=== PATIENT | female | born 1975 | race Caucasian/White ===

== ENCOUNTER 2025-01-30 20:38 | Emergency (ER) | payer MEDICAID, SELFPAY ==
[2025-01-30] VITALS (11 sets, daily range): BP systolic 123–124; BP diastolic 83–85; PULSE 72–94; TEMP 37.1; O2SAT 96–99; BMI 24.9
--- NOTE | 2025-01-30 21:08 | ED.SYNCOPE1 ---
HPI - Syncope General Chief Complaint: Syncope Stated Complaint: other Time Seen by Provider: 01/30/25 21:02 Source: patient Mode of arrival: ambulance Limitations: no limitations History of Present Illness HPI narrative: history of GLEASON and GERD. syncopal episode usually every 2 months. Workup in progress. Currently wearing a heart monitor. [place] nauseated and went into the bathroom to vomit. Recalls bending over the commode and woke up on the floor. Not sure she struck her head. Does have mild neck pain. No chest pain or extremity weakness. Feels ok now Related Data Home Medications ?Medication ?Instructions ?Recorded ?Confirmed ergocalciferol (vitamin D2) 1,250 1,250 mcg PO .once a week 01/30/25 01/30/25 mcg (50,000 unit) capsule famotidine 20 mg tablet 20 mg PO .nightly 01/30/25 01/30/25 famotidine 40 mg tablet 40 mg PO DAILY 01/30/25 01/30/25 hydroxyzine HCl 10 mg tablet 10 mg PO DAILY PRN itching 01/30/25 01/30/25 loratadine 5 mg/5 mL oral solution 20 ml PO DAILY PRN allergic 01/30/25 01/30/25 symptoms pantoprazole 40 mg tablet,delayed 40 mg PO Q12H 01/30/25 01/30/25 release pyridostigmine bromide 30 mg tablet 30 mg PO TID 01/30/25 01/30/25 Allergies Allergy/AdvReac Type Severity Reaction Status Date / Time gabapentin Allergy Severe Anaphylaxis Verified 01/30/25 20:47 nitrofurantoin (From Allergy Severe Anaphylaxis Verified 01/30/25 20:47 Macrobid) steroids Allergy Severe Anaphylaxis Uncoded 01/30/25 20:47 Review of Systems ROS Status of ROS 10 or more systems reviewed and unremarkable except as noted in history and below PFSH PFSH Social History Little interest or pleasure in doing things: not at all Feeling down, depressed, or hopeless: not at all Exam Constitutional Vital Signs, click to edit/add: Last Vital Signs Temp 98.7 F 01/30/25 20:47 Pulse 75 01/30/25 22:33 Resp 20 01/30/25 22:33 BP 124/83 01/30/25 22:33 Pulse Ox 99 01/30/25 22:33 O2 Del Method Room Air 01/30/25 22:33 Common normals: no apparent distress, average body habitus, oriented x3, no limitations, healthy appearing, alert and well nourished [facility] Common normals: normocephalic and head/scalp atraumatic Eye Common normals: EOMs intact bilaterally and conjunctivae normal Neck & C-Spine Common normals: full ROM (mild right cervical tenderness) Chest Common normals: inspection of chest normal and palpation of chest normal Respiratory Common normals: normal respiratory effort, no retractions, no use of accessory muscles and clear to auscultation bilaterally Cardio Common normals: regular rate, regular rhythm, S1 normal heart sound and S2 normal heart sound GI Common normals: Normal to inspection, nondistended, normoactive bowel sounds present, soft to palpation and non-tender Extremity Common normals: normal to inspection and full ROM Neuro Common normals: oriented x3, CN's II-XII intact bilaterally, moves all extremities and no focal motor deficits Psych Appearance: grossly normal Course Vital Signs Vital signs: Vital Signs Pulse Rate 81 01/30/25 20:45 Respiratory Rate 18 01/30/25 20:45 Pulse Oximetry 97 01/30/25 20:45 Temperature 98.7 F 01/30/25 20:47 Pulse Rate 75 01/30/25 22:33 Respiratory Rate 20 01/30/25 22:33 Blood Pressure 124/83 01/30/25 22:33 Pulse Oximetry 99 01/30/25 22:33 Oxygen Delivery Method Room Air 01/30/25 22:33 MDM - Syncope MDM Narrative Medical decision making narrative: patient with history of GLEASON. States she can pass out maybe once [id number]. Tonight ran into the bathroom to vomit and recall standing over the commode when she woke up on the floor. Does not believe she struck her head but her neck is sore. No weakness or her extremities. brought to the ER by squad. Other than her neck she feels ok. workup neg including d-dimer and troponin. CT brain and C-spine without acute findings. she is discharged in stable condition and advised her syncope is most likely related to her GLEASON. she was hydrated with 1L NS prior to discharge Lab Data Labs: Lab Results 01/30/25 Range/Units 21:20 WBC 4.9 (4.0-11.0) 10^3/uL RBC 4.33 (4.20-5.40) 10^6/uL Hgb 12.2 (12.0-16.0) g/dL Hct 35.9 L (36.0-48.0) % MCV 82.9 (81.0-99.0) fL MCH 28.2 (26.7-34.0) pg MCHC 34.0 (29.9-35.2) g/dL RDW 12.6 (11.0-15.0) % Plt Count 206 (150-450) 10^3/uL MPV 10.7 (9.5-13.5) fL Neut % (Auto) 71.6 (43.0-75.0) % Lymph % (Auto) 19.2 L (20.5-60.0) % [place] % (Auto) 7.6 (1.7-12.0) % Eos % (Auto) 1.2 (0.9-7.0) % Baso % (Auto) 0.2 (0.2-2.0) % Neut # (Auto) 3.5 (1.4-6.5) 10^3/uL Lymph # (Auto) 0.9 L (1.2-3.8) 10^3/uL [place] # (Auto) 0.4 (0.3-0.8) 10^3/uL Eos # (Auto) 0.1 (0.0-0.7) 10^3/uL Baso # (Auto) 0.0 (0.0-0.1) 10^3/uL Abs Immat Gran (auto) 0.01 (0.00-0.03) 10^3/uL Imm/Tot Granulo (auto) 0.2 (0.0-0.5) % D-Dimer 0.57 (<=0.59) mg/L FEU Sodium 145 (136-145) mmol/L Potassium 3.5 (3.5-5.1) mmol/L Chloride 108 H (98-107) mmol/L Carbon Dioxide 29.9 (21.0-32.0) mmol/L Anion Gap 10.6 BUN 11.0 (7.0-18.0) mg/dL Creatinine 0.86 (0.55-1.02) mg/dL Est GFR ( Amer) >60 (>=60 mL/min/1.73m^2) Est GFR (Non-Af Amer) >60 (>=60 mL/min/1.73m^2) BUN/Creatinine Ratio 12.8 Glucose 91 (74-106) mg/dL Calcium 8.4 L (8.5-10.1) mg/dL Troponin I High Sens <4.0 L (4.0-51.3) pg/mL Discharge Plan Discharge Chief Complaint: Syncope Clinical Impression: Syncope due to orthostatic hypotension, Cervical strain Patient Disposition: Home, Self-Care Prescriptions / Home Meds: No Action ergocalciferol (vitamin D2) 1,250 mcg (50,000 unit) capsule 1,250 mcg PO .once a week famotidine 20 mg tablet 20 mg PO .nightly famotidine 40 mg tablet 40 mg PO DAILY hydroxyzine HCl 10 mg tablet 10 mg PO DAILY PRN (Reason: itching) loratadine 5 mg/5 mL solution 20 ml PO DAILY PRN (Reason: allergic symptoms) pantoprazole 40 mg tablet,delayed release (DR/EC) 40 mg PO Q12H pyridostigmine bromide 30 mg tablet 30 mg PO TID Print Language: Estonian Instructions: Cervical Strain (ED), Syncope (ED) Referrals: Physician,Non-Staff, MD [Primary Care Provider] - 1 week
--- NOTE | 2025-01-30 21:11 | XR_ITS ---
The [address] [address] Patient Name: NABOR STOVALL MRN: [id number] date: 1975 Sex: F Assigned Patient Location: ED.MAIN Current Patient Location: ER Accession/Order Number: [id number] Exam Date: 01/30/2025 21:30 Report Date: 01/30/2025 22:14 At the request of: LAKISHA KNIGHT MD Procedure: XR chest 1V PA CHEST: CLINICAL HISTORY: syncope COMPARISON: None The heart is normal in size. The lungs are clear. The pulmonary vasculature is normal. Mediastinum and hilar regions are unremarkable. No pleural effusions are seen. Visualized bones are intact. XR/XR chest 1V IMPRESSION: NEGATIVE CHEST. Impression dictated by: Jeffy Vazquez M.D. 01/30/2025 10:14 PM Dictation Location: [place] [address] Electronically authenticated by: [id number] Y Date: 01/30/2025 22:14
[2025-01-30 21:29] LABS: Hematocrit 35.9 % (36.0-48.0); Hemoglobin 12.2 g/dL (12.0-16.0); Immature Granulocytes Abs Auto 0.01 10^3/uL (0.00-0.03); Immature Granulocytes Pct Auto 0.2 % (0.0-0.5); Lymphocytes Absolute Auto 0.9 10^3/uL (1.2-3.8); Mean Corpuscular HGB Conc 34.0 g/dL (29.9-35.2); Mean Corpuscular Hemoglobin 28.2 pg (26.7-34.0); Mean Corpuscular Volume 82.9 fL (81.0-99.0); Platelet Count 206 10^3/uL (150-450); Red Blood Count 4.33 10^6/uL (4.20-5.40); White Blood Count 4.9 10^3/uL (4.0-11.0)
[2025-01-30 21:44] LABS: Anion Gap 10.6; Blood Urea Nitrogen 11.0 mg/dL (7.0-18.0); Calcium 8.4 mg/dL (8.5-10.1); Carbon Dioxide 29.9 mmol/L (21.0-32.0); Chloride 108 mmol/L (98-107); Estimated GFR (African America >60 (>=60 mL/min/1.73m^2); Estimated GFR (Non-African Ame >60 (>=60 mL/min/1.73m^2); Glucose 91 mg/dL (74-106); Potassium 3.5 mmol/L (3.5-5.1); Sodium 145 mmol/L (136-145)
[2025-01-30] MEDS: 0.9 % SODIUM CHLORIDE 1,000 ML 999 ML IV (21:47)
--- NOTE | 2025-01-30 22:03 | CT_ITS ---
The [address] [address] Patient Name: NABOR STOVALL MRN: [id number] date: 1975 Sex: F Assigned Patient Location: ER Current Patient Location: ER Accession/Order Number: [id number] Exam Date: 01/30/2025 22:17 Report Date: 01/30/2025 22:36 At the request of: LAKISHA KNIGHT MD Procedure: CT head/brain wo con CT BRAIN WITHOUT CONTRAST: CLINICAL HISTORY: fall COMPARISON: None TECHNIQUE: Contiguous axial unenhanced images were obtained through the brain. This CT exam was performed using one or more following dose reduction techniques: Automated exposure control, adjustment of the mA and/or kV according to patient size, or use of iterative reconstruction technique. FINDINGS: There is no evidence of midline shift, intra or extra-axial fluid collection, hemorrhage or CT evidence of acute large vascular distribution stroke Visualized intraorbital contents appear unremarkable. Visualized paranasal sinuses are clear. The surrounding soft tissues are normal. CT/CT head/brain wo con IMPRESSION: NO ACUTE INTRACRANIAL ABNORMALITY. Impression dictated by: Jeffy Vazquez M.D. 01/30/2025 10:36 PM Dictation Location: [place] [address] Electronically authenticated by: [id number] Y Date: 01/30/2025 22:36
--- NOTE | 2025-01-30 22:03 | CT_ITS ---
The [address] [address] Patient Name: NABOR STOVALL MRN: [id number] date: 1975 Sex: F Assigned Patient Location: ER Current Patient Location: ER Accession/Order Number: [id number] Exam Date: 01/30/2025 22:17 Report Date: 01/30/2025 22:44 At the request of: LAKISHA KNIGHT MD Procedure: CT cervical spine wo con CT CERVICAL SPINE WITHOUT CONTRAST WITH 3D RECONSTRUCTIONS: CLINICAL HISTORY: fall COMPARISON: None TECHNIQUE: Spiral axial unenhanced images were obtained through the cervical spine. Sagittal, coronal and 3D volume-rendered reconstructions were also reviewed. This CT exam was performed using one or more following dose reduction techniques: Automated exposure control, adjustment of the mA and/or kV according to patient size, or use of iterative reconstruction technique. FINDINGS: No fracture malalignment. Mild multilevel degenerative change with uncovertebral spurring notably C4-C6. Prevertebral paraspinal soft tissues otherwise unremarkable. CT/CT cervical spine wo con IMPRESSION: NO CERVICAL SPINE FRACTURE Impression dictated by: Jeffy Vazquez M.D. 01/30/2025 10:44 PM Dictation Location: [place] [address] Electronically authenticated by: [id number] Y Date: 01/30/2025 22:44
--- NOTE | 2025-01-30 22:17 | ECG_ITS ---
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
== END 2025-01-31 00:13 | disposition home or self-care (01) ==
PROVIDERS: Emergency Provider Internal Medicine
DX: S16.1XXA Strain of muscle, fascia and tendon at neck level, initial encounter (principal); I95.1 Orthostatic hypotension; W18.39XA Other fall on same level, initial encounter; Y93.89 Activity, other specified; Y92.002 Bathroom of unspecified non-institutional (private) residence as the place of occurrence of the external cause; K21.9 Gastro-esophageal reflux disease without esophagitis; G90.A Postural orthostatic tachycardia syndrome [POTS]
CPT/HCPCS: 36415; 70450; 71045; 72125; 76376; 80048; 84484; 85025; 85378; 93005; 99285

== ENCOUNTER 2025-05-09 15:15 | Emergency (ER) | payer MEDICAID, SELFPAY ==
--- OUTSIDE RECORDS SUMMARY | 2024-08-01 03:30 | XMS_ITS ---
Author Organization The 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 and Psoriasis vulgaris L40.0 Assessments Encounter Date Diagnosis (ICD Code) Assessment Notes Treatment Notes Treatment Clinical Notes Section Notes 08/01/2024 Other psoriatic arthropathy (ICD -10 - L40.59) 08/01/2024Psoriasis vulgaris (ICD-10 - L40.0) Plan Of Treatment No Information Progress Notes * Soumya STOVALLDOB: [birth year] (49 yo F)Acc No.[id number]:08/01/2024 UNLOCKED PROGRESS NOTE Progress Note Patient: Beth REEVESSOFISupaSoumya :?Ioana Chapin APRNDOB:1975???Age:49 Y ???Sex:FemaleDate:08/01/2024Phone:[phone]:[id number], [place]Qvq:Larry Cee In:08:15 AM ESTCheck Out: 08:53 AM EST Subjective: * Chief Complaints: * 1 . 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 * Medical History: Objective: * Vitals: Assessment: * Assessment: 1.?Other psoriatic arthropathy - L40.59???2.?Psoriasis vulgaris - L40.0 ?? Plan: * Treatment: * * Electronic signature of Ioana Chapin NP on 05/09/2025 at 04:20 PM ESTSign off status: PendingVisit Status:?CHK (Check Out) * Provider: Brianna Chapin APRN Date: 0 08/01/2024 Generated for Printing/Faxing/eTransmitting on:?05/09/2025 04:20 PM EST
--- OUTSIDE RECORDS SUMMARY | 2024-12-09 04:15 | XMS_ITS ---
Author Organization [facility] Address [address] [place], [place] [id number] Care Team Providers Care Utility Engineer Name Role Phone Josh Diandra Primary Care Provider REASON FOR VISIT 3 month f/u raynauds phenomenom Social History Sex Assigned At : Social History Observation Description Sex Assigned At Female Encounters Encounter Location Date Provider Diagnosis [address] [address] 12/09/2024 Diandra Moreno Plan Of Treatment Next Appt Details Provider Name:Diandra Jonesood, 07/21/2025 01:15:00 PM, [address] [place] [address], [phone], Progress Notes * Soumya STOVALLDOB: [birth year] (49 yo F)Acc No.[id number]:12/09/2024 Medical Note Patient: Beth Soumya benites :?Diandra Jonesood MDDOB:1975???Age:49 Y???Sex: FemaleDate:12/09/2024Phone:[phone]:[id number], [place]-[address] Subjective: * Chief Complaints: * 3 month f/u raynauds phenomenom * Electronic signature of Diandra Moreno MD on 05/09/2025 at 04:19 PM ESTSign off status: Pending * Provider: Nitza Moreno MD Date: 0 12/09/2024 Generated for Printing/Faxing/eTransmitting on:?05/09/2025 04:19 PM EST
--- OUTSIDE RECORDS SUMMARY | 2024-12-16 04:30 | XMS_ITS ---
Author Organization [facility] in [place] Address [address] [place] [address] Care Team Providers Care Lead Etl Developer Name Role Phone Josh NAVARRETE, Diandra Primary Care Provider Unavailab ARIADNA Weems Unavailable [phone] REASON FOR VISIT KS-3 month PS follow up Encounters Encounter Location Date Provider Diagnosis [facility] [address] [place] [address] 12/16/2024 ARIADNA HAGEN Plan Of Treatment No Information Progress Notes * Soumya STOVALLDOB: [birth year] (49 yo F)Acc No.[id number]:12/16/2024 UNLOCKED PROGRESS NOTE Established Patient: Soumya WALKER :?ARIADNA HAGEN APRNDOB:1975???Age:49 Y ???Sex:FemaleDate:12/16/2024Phone:[phone]:[id number] [place], [place]Tck:Diandra Moreno MD Subjective: * Chief Complaints: * 1 . KS-3 month PS follow up. * Medical History: Objective: * Vitals: Assessment: Plan: * Treatment: * * Electronic signature of ARIADNA HAGEN NP on 05/09/2025 at 04:20 PM ESTSign off status: PendingVisit Status:?N/S (No-Show) * Provider: Brianna HAGEN APRN Date: 0 12/16/2024 Generated for Printing/Faxing/eTransmitting on:?05/09/2025 04:20 PM EST
--- OUTSIDE RECORDS SUMMARY | 2025-05-06 14:00 | XMS_ITS | Encounter Summary ---
Author Organization [facility] Address [address] [place] [address] Care Team Providers Care Services Rep Name Role Phone William Weston Primary Care Provider [phone] Encounter Details DateTypeDepartmentCare Team (Latest Contact Info)Wotahbdjbwa14/17/2025 2:00 PM ESTOffice Visit [facility] [address] [place] [address] Artemio Post MD [address] [place] [address] POTS (postural orthostatic tachycardia syndrome) (Primary Dx); Mast cell activation Social History Tobacco UseTypesPacks/DayYears UsedDateSmoking Tobacco: NeverSmokeless Tobacco: NeverAlcohol UseStandard Drinks/WeekCommentsNot Currently0 (1 standard drink = 0.6 oz pure alcohol)MS Safety & EnvironmentAnswerDate RecordedFear of Current or Ex-PartnerNot on file10/09/2023Emotionally AbusedNot on file10/09/2023hysically AbusedNot on file10/09/2023Sexually AbusedNot on file10/09/2023hysically or Sexually AbusedNot on file10/09/2023CommentsNoSex and Gender Information ValueDate RecordedSex Assigned at GhkxlPqwhtp29/27/2025 9:30 AM EDTLegal Sex Qoljnf7011/16/2021 11:16 PM EDTGender GlmhwbuxNartul90/27/2025 9:30 AM EDTSexual OrientationChoose not to igiqualq30/27/2025 9:30 AM EDTdocumented as of this encounter Last Filed Vital Signs Vital SignReadingTime TakenCommentsBlood Grzfxvsy067/80107/07/2024 1:49 PM EST Pulse--Temperature--Respiratory Rate--Oxygen Dxwizgzqlx40%05/06/2025 1:49 PM EST Inhaled Oxygen Concentration--Soguam59.9 kg (132 lb)05/06/2025 1:49 PM ESTHeight 154.9 cm (5' 1 )05/06/2025 1:49 PM ESTBody Mass Index24.9405/06/2025 1:49 PM EST documented in this encounter Progress Notes * Artemio Post MD - 05/06/2025 2:00 PM EST Images from the original note were not included. [facility] Reason for Consultation: Postural orthostatic tachycardia syndrome HPI: Soumya Rosenberg is a 49 y.o. year old with past medical history of postural orthostatic tachycardia syndrome.. She says she was well until she contracted COVID in 2019. At that time she began to experience dizziness, palpitations, lightheadedness and fatigue. She was still able to work with some difficulty. She then received a COVID vaccination ([employer]) and had a severe reaction to it breaking out in the rash. She ended up being hospitalized because of this. In July or the first of 2022 she injured her back and so much so that it required surgery which she had in May 10, 2023. Following this surgical procedure she got markedly worse and became bed ridden. When she tries to get up she notices extreme palpitations and her heart racing. Her fatigue markedly worsened and she beganto experience brain fog and heat intolerance. As things progressed she noted blood pooling in her lower extremities when upright as well as in her hands. It progressed to the point where she could not stand for fear becoming extremely tachycardic lightheaded and near syncopal. She began to have a number of GI symptoms including extreme reflux and nausea that was exacerbated with eating. As a consequence she has lost 60 pounds of weight. She was felt to possibly have postural tachycardia syndrome and underwent head upright tilt table testing which was markedly positive. She was tried on a number of beta- blockers however this made her worse. Midodrine made her extremely nauseated. She was tried on Lexapro and this was ineffective as well. She is developing many symptoms that sound suggestive of mast cell activation syndrome. On physical examination her resting heart rate sitting on the exam table is 100 beats a minute and goes to 133 upon standing. After carefully reviewing her history,physical findings and the very detailed evaluation she has had done I believe she suffers from postural orthostatic tachycardia syndrome. Many of these patients will also develop a mast cell activation syndrome which then makes it difficult for them to eat or tolerate many pharmaceuticals. I think I would like to start her first on Gastrocrom 1 ampoule before meals 4 times daily. Then if we can calm down her GI tract I had like to start her on ivabradine 5 mg orally twice daily. I told her to contact us if any problems occurred. I had a long discussion with the patient and her mother regarding the pathophysiology of postural tachycardia syndrome, its probable autoimmune basis and potential therapeutic modalities could be employed. We also went over the necessity for reconditioning but doing so on a very slow and gentle basis. PMH: Medical History[1] PSH: Surgical History[2] SH: Social Drivers of Health Tobacco Use: Low Risk (05/06/2025) Patient History Smoking Tobacco Use: Never Smokeless Tobacco Use: Never Passive Exposure: Not on file Alcohol Use: Not At Risk (11/19/2024) Received from [email or web address]-C Q1: How often do you have a drink containing alcohol?: Never Q2: How many drinks containing alcohol do you have on a typical day when you are drinking?: Patientdoes not drink Q3: How often do you have six or more drinks on one occasion?: Never Financial Resource Strain: Not on file Food Insecurity: No Food Insecurity (03/25/2025) Received from [facility] [employer] Hunger Screening Within the past 12 months we worried whether our food would run out before we got money to buy more.: Never True Within the past 12 months the food we bought just didn't last and we didn't have money to get more.: Never True Transportation Needs: No Transportation Needs (05/11/2024) Received from [facility] PRAP[facility] - Transportation Lack of Transportation (Medical): No Lack of Transportation (Non-Medical): No Physical Activity: Not on file Stress: Not on file Social Connections: Not on file Intimate Partner Violence: Unknown (10/09/2023) MS Safety & Environment Fear of Current or Ex-Partner: Not on file Emotionally Abused: Not on file Physically Abused: Not on file Sexually Abused: Not on file Physically or Sexually Abused: Not on file Depression: Not at risk (04/15/2024) Received from [facility] PHQ-2 Patient Health Questionnaire-2 Score: 0 Housing Stability: Low Risk (05/11/2024) Received from [facility] Housing Stability Vital Sign In the last 12 months, was there a time when you were not able to pay the mortgage or rent on time?: No In the past 12 months, how many times have you moved where you were living?: 1 At any time in the past 12 months, were you homeless or living in a residential (including now)?: No Utilities: Not At Risk (05/11/2024) Received from [facility] Utilities Threatened with loss of utilities: No Health Literacy: Not on file Meds: Medications Ordered Prior to Encounter[3] ROS: Cardio Basic Cardiovascular Symptoms: fatigue, dizziness, lightheadedness, no leg edema, near syncope, no orthopnea, no PND, no claudication, Constitutional Constitutional: no fever, night sweats, no significant weight gain, significant weight loss, exercise intolerance Eyes Eyes: no dry eyes, no irritation, no vision change ENMT Ears: no difficulty hearing, no ear pain Nose: no frequent nosebleeds, Mouth/Throat: no sore throat, no bleeding gums, no snoring, no dry mouth, no mouth ulcers, no oral abnormalities, no teeth problems Respiratory Respiratory: no cough, no wheezing, no coughing up blood, no sleep apnea Musculoskeletal Musculoskeletal: no muscle aches, no muscle weakness, joint pain+, no back pain, no swelling in theextremities Integumentary Skin no rash, no ulcer, no varicosities, no discoloration, no pruritus Neurologic Neurologic: no loss of consciousness, no weakness, no numbness, no seizures, dizziness, headaches, brain fog Psychiatric Psych: no depression, feeling safe in relationship, no alcohol abuse, Hematologic/Lymphatic Hematologic/Lymphatic no swollen glands, no bruising Physical Exam: Constitutional General Appearance: well-nourished, well-developed, appears stated age Level of Distress: comfortable Psychiatric Mental Status: alert, normal affect Orientation: oriented to time, place, and person Insight: good judgement Eyes Lids and Conjunctivae: non-injected, no xanthelasma ENMT Ears: no lesions on external ear Nose: no lesions on external nose Oropharynx: no cyanosis, no pallor Neck Neck: supple, trachea midline Carotid Arteries: bilateral normal upstroke, no bruits Jugular Veins: normal jugular venous pressure Thyroid: not enlarged Lungs Respiratory Effort: unlabored Chest Exam: normal curvature, no thoracic deformity Auscultation: clear, no wheezing, no rales, no rhonchi Cardiovascular Rate And Rhythm: regular Heart Sounds: normal S1, normal s2, no gallop Systolic Murmur: not heard Diastolic Murmur: not heard Extremities: no cyanosis, no edema, no peripheral signs of emboli Peripheral Pulses Radial Pulse: Tachycardic Abdomen Inspection and Palpation: soft, non distended, no bruit, non tender Musculoskeletal Inspection: no joint swelling Neurologic Gait: normal gait, however unable to stand more than a few moments Skin Inspection and Palpation: warm and dry Nails: no clubbing Labs: @LABRESULTS@ EKG: No results found for this or any previous visit (from the past 4464 hours). Echo: No echocardiogram results found for the past 12 months Stress test: Coronary angiogram: @CATH@ Diagnostic Imaging: No images are attached to the encounter. 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 famotidine (Pepcid) 20 mg tablet Take 20 mg by mouth. inulin (Fiber Gummies) 2 gram tablet,chewable Chew. loratadine (Claritin) 5 mg/5 mL syrup Take 20 mg by mouth in the morning. pantoprazole (ProtoNix) 40 mg EC tablet TAKE 1 TABLET BY MOUTH ONCE DAILY IN THE MORNING BEFORE BREAKFAST pyRIDostigmine (Mestinon) 30 mg tablet Take 1 tablet (30 mg) by mouth three times daily. (Patient not taking: Reported on 05/06/2025) 90 tablet 3 No current facility-administered medications on file prior to visit. documented in this encounter Plan of Treatment Not on file documented as of this encounter Visit Diagnoses Diagnosis POTS (postural orthostatic tachycardia syndrome)- Primary Unspecified tachycardia Mast cell activation documented in this encounter Care Teams Team MemberRelationshipSpecialtyStart DateEnd Date William Weston PA PCP - [facility]10/16/23documented as of this encounter
[2025-05-09] VITALS (29 sets, daily range): BP systolic 112–161; BP diastolic 77–97; PULSE 85–113; TEMP 36.8; O2SAT 96–99; BMI 24.9
--- NOTE | 2025-05-09 15:38 | ECG_ITS ---
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 Measurements Intervals [place] Rate: 103 P: 51 LA: 130 QRS: 25 QRSD: 76 T: 14 QT: 328 QTc: 387 Interpretive Statements 1120 Sinus tachycardia 8102 Low QRS voltage in chest leads 0102 ARTIFACT PRESENT 9140 abnormal rhythm ECG Compared to ECG 01/30/2025 20:45:01 Low QRS voltage now present Sinus rhythm no longer present Supraventricular premature complexes no longer present Electronically Signed On 05-09-2025 16:02:22 EST by MARVIN RAMIREZ M.D.
--- NOTE | 2025-05-09 15:38 | XR_ITS ---
[facility] [place] [id number] Patient Name: NABOR STOVALL MRN: [id number] date: 1975 Sex: F Assigned Patient Location: ER Current Patient Location: ED.MAIN Accession/Order Number: [id number] Exam Date: 05/09/2025 15:55 Report Date: 05/09/2025 16:16 At the request of: YOAV WILKERSON MD Procedure: XR chest 1V Single view chest: CLINICAL HISTORY: Hematemesis COMPARISON: 01/30/2025 FINDINGS: The heart is normal in size. The lungs are clear. The pulmonary vasculature is normal. Mediastinum and hilar regions are unremarkable. No pleural effusions are seen. Visualized bones are intact. XR/XR chest 1V IMPRESSION: NO ACUTE PROCESS. Impression dictated by: Nabeel Diaz Jr., D.O. 05/09/2025 4:16 PM Dictation Location: [place] [address] Electronically authenticated by: [id number] Y Date: 05/09/2025 16:16
--- NOTE | 2025-05-09 15:41 | ED.GENADUL1 ---
HPI HPI - General Adult General Chief complaint: Abdominal Pain Stated complaint: Chest Pain Time Seen by Provider: 05/09/25 15:23 Source: patient Mode of arrival: Wheelchair History of Present Illness HPI narrative: 49-year-old female presented to the emergency department for hematemesis. She states it started today. She does not take any blood thinners and has not seen any blood in her stool. 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 She has not had endoscopy since then. Related Data Home Medications ?Medication ?Instructions ?Recorded ?Confirmed famotidine 20 mg tablet 20 mg PO .nightly 01/30/25 05/09/25 famotidine 40 mg tablet 40 mg PO DAILY 01/30/25 05/09/25 hydroxyzine HCl 10 mg tablet 10 mg PO DAILY PRN itching 01/30/25 05/09/25 loratadine 5 mg/5 mL oral solution 20 ml PO Q12H allergic symptoms 01/30/25 05/09/25 pantoprazole 40 mg tablet,delayed 40 mg PO Q12H 01/30/25 05/09/25 release Allergies Allergy/AdvReac Type Severity Reaction Status Date / Time gabapentin Allergy Severe Anaphylaxis Verified 05/09/25 15:28 nitrofurantoin (From Allergy Severe Anaphylaxis Verified 05/09/25 15:28 Macrobid) steroids Allergy Severe Anaphylaxis Uncoded 05/09/25 15:28 Opioid HPI Opioid Management Most Recent Opioid Data: Last Pain Scale 7 Today, 15:31 Review of Systems ROS Narrative A ten point review of systems is negative except as noted above. PFSH PFSH Social History Little interest or pleasure in doing things: not at all Feeling down, depressed, or hopeless: not at all Exam Narrative Exam Narrative: Nurses note and vital signs reviewed General:The patient appears well and in no apparent distress.Patient is resting comfortably on cart. Skin:Warm, dry, no pallor noted.There is no rash noted. Head:Normocephalic, atraumatic Eye: Normal conjunctiva, no drainage Ears, Nose, Mouth, and Throat: oral mucosa is moist. Nares patent. Cardiovascular:Regular Rate and Rhythm Respiratory:Patient is in no distress, no accessory muscle use, lungs are clear to auscultation, no wheezing, rales or rhonchi Back:non-tender GI: Soft and nontender Musculoskeletal: The patient has no evidence of calf tenderness, no pitting edema, symmetrical pulses noted bilaterally Neurological:A&O, normal speech Psychiatric:Cooperative Constitutional Vital Signs, click to edit/add: Last Vital Signs Temp 98.3 F 05/09/25 15:22 Pulse 95 H 05/09/25 17:30 Resp 13 05/09/25 17:30 BP 134/90 05/09/25 17:30 Pulse Ox 98 05/09/25 17:30 O2 Del Method Room Air 05/09/25 15:22 Course Vital Signs Vital signs: Vital Signs Temperature 98.3 F 05/09/25 15:22 Pulse Rate 99 H 05/09/25 15:22 Respiratory Rate 18 05/09/25 15:22 Blood Pressure 161/97 H 05/09/25 15:22 Pulse Oximetry 99 05/09/25 15:22 Oxygen Delivery Method Room Air 05/09/25 15:22 Temperature 98.3 F 05/09/25 15:22 Pulse Rate 95 H 05/09/25 17:30 Respiratory Rate 13 05/09/25 17:30 Blood Pressure 134/90 05/09/25 17:30 Pulse Oximetry 98 05/09/25 17:30 Oxygen Delivery Method Room Air 05/09/25 15:22 Medical Decision Making MDM Narrative Medical decision making narrative: The patient presents with what appears to be an upper GI bleed. A year ago she states she had a precancerous tumor that needed to be removed from her esophagus. She has had no issues since then until now. She was given IV Protonix and placed on a Protonix drip. I have spoken to framer who accepts the patient at [facility]. The patient is stable and agreeable for transfer. Differential Diagnosis Differential Diagnosis: Upper GI bleed, hematemesis, esophageal varices, esophageal mass Lab Data Lab results reviewed: Yes I reviewed the patient's lab results Labs: Lab Results 05/09/25 Range/Units 15:45 WBC 4.6 (4.0-11.0) 10^3/uL RBC 4.81 (4.20-5.40) 10^6/uL Hgb 13.5 (12.0-16.0) g/dL Hct 40.6 (36.0-48.0) % MCV 84.4 (81.0-99.0) fL MCH 28.1 (26.7-34.0) pg MCHC 33.3 (29.9-35.2) g/dL RDW 12.7 (11.0-15.0) % Plt Count 212 (150-450) 10^3/uL MPV 10.8 (9.5-13.5) fL Neut % (Auto) 67.5 (43.0-75.0) % Lymph % (Auto) 23.4 (20.5-60.0) % Bartholomew % (Auto) 6.3 (1.7-12.0) % Eos % (Auto) 2.2 (0.9-7.0) % Baso % (Auto) 0.4 (0.2-2.0) % Neut # (Auto) 3.1 (1.4-6.5) 10^3/uL Lymph # (Auto) 1.1 L (1.2-3.8) 10^3/uL Bartholomew # (Auto) 0.3 (0.3-0.8) 10^3/uL Eos # (Auto) 0.1 (0.0-0.7) 10^3/uL Baso # (Auto) 0.0 (0.0-0.1) 10^3/uL Abs Immat Gran (auto) 0.01 (0.00-0.03) 10^3/uL Imm/Tot Granulo (auto) 0.2 (0.0-0.5) % PT 11.0 (9.0-11.6) sec INR 1.05 APTT 28.8 (22.3-36.2) sec Sodium 147 H (136-145) mmol/L Potassium 4.3 (3.5-5.1) mmol/L Chloride 108 H (98-107) mmol/L Carbon Dioxide 32.4 H (21.0-32.0) mmol/L Anion Gap 10.9 BUN 12.0 (7.0-18.0) mg/dL Creatinine 0.90 (0.55-1.02) mg/dL Est GFR ( Amer) >60 (>=60 mL/min/1.73m^2) Est GFR (Non-Af Amer) >60 (>=60 mL/min/1.73m^2) BUN/Creatinine Ratio 13.3 Glucose 94 (74-106) mg/dL Calcium 9.3 (8.5-10.1) mg/dL Imaging Data Chest x-ray: Radiologist's impression: ITS Impressions Chest X-Ray 05/09/25 15:38 IMPRESSION: NO ACUTE PROCESS. Impression dictated by: Nabeel Diaz Jr., D.O. 05/09/2025 4:16 PM Dictation Location[facility] Electronically authenticated by: [id number] Y Date: 05/09/2025 16:16 ECG Data Attestation: I personally reviewed and interpreted this ECG as follows: (EKG on my interpretation shows sinus rhythm with a rate of 103 and some artifact.) Discharge Plan Discharge Chief Complaint: Abdominal Pain Clinical Impression: Acute upper GI bleed Patient Disposition: [facility] Time of Disposition Decision: 18:09 Discharge Location: [facility] Condition: Fair Mode of Transportation: EMS
[2025-05-09] MEDS: PANTOPRAZOLE SODIUM 40 MG VIAL IV (15:56)
[2025-05-09 16:13] LABS: Hematocrit 40.6 % (36.0-48.0); Hemoglobin 13.5 g/dL (12.0-16.0); Immature Granulocytes Abs Auto 0.01 10^3/uL (0.00-0.03); Immature Granulocytes Pct Auto 0.2 % (0.0-0.5); Lymphocytes Absolute Auto 1.1 10^3/uL (1.2-3.8); Mean Corpuscular HGB Conc 33.3 g/dL (29.9-35.2); Mean Corpuscular Hemoglobin 28.1 pg (26.7-34.0); Mean Corpuscular Volume 84.4 fL (81.0-99.0); Platelet Count 212 10^3/uL (150-450); Red Blood Count 4.81 10^6/uL (4.20-5.40); White Blood Count 4.6 10^3/uL (4.0-11.0)
--- OUTSIDE RECORDS SUMMARY | 2025-05-09 16:20 | XMS_ITS | Clinical Summary ---
Author Organization [facility] Address [address] [place] [address] Care Team Providers Care Audience Development Manager Name Role Phone William Weston Primary Care Provider [phone] Allergies Active AllergyReactionsCriticalityNoted DateCommentsCat Hair Standardized Allergenic ExtractAnaphylaxis,Hives,Shortness of gnaegoFugt48italopram Other01/14/2025DexamethasoneAnaphylaxis,Fever,Hives,Itching,Nausea And Vomiting, Palpitations,Shortness of yczajbCvql70/16/2023og TvrzdcJhfvf84/17/2025 GabapentinAnaphylaxis,Hives,Itching,Shortness of tqgxtsXzbl99/20/2023Mirtazapine MzxjCoq3401/14/2025NitrofurantoinAnaphylaxis,Hives,Itching,Nausea Only,Shortness of wdofscDlks91/28/2023 Other reaction(s): vomiting/rash EkuthejndpPvsruQzmq916828JcjpakeluwQabjy11/20/2024 Medications MedicationSigDispense QuantityRefillsLast FilledStart DateEnd DateStatus albuterol 90 mcg/actuation inhaler Inhale 2 puffs.06/17/2017Active famotidine (Pepcid) 20 mg tablet Take 20 mg by mouth.06/17/2021ctive pantoprazole (ProtoNix) 40 mg EC tablet TAKE 1 TABLET BY MOUTH ONCE DAILY IN THE MORNING BEFORE MZJGAEDSG25/23/2023 Active inulin (Fiber Gummies) 2 gram tablet,chewable Chew.Active loratadine (Claritin) 5 mg/5 mL syrup Take 20 mg by mouth in the morning.Active pyRIDostigmine (Mestinon) 30 mg tablet Indications:Postural orthostatic tachycardia syndromeTake 1 tablet (30 mg) by mouth three times daily. 90 tablet 5Active Additional Information Patient not taking.Reported on 05/06/2025 cromolyn (Gastrocrom) 100 mg/5 mL solution Indications:Mast cell activationTake 5 mL (100 mg) by mouth before breakfast, before lunch, before evening meal, and at bedtime. 600 mL 111516Active ivabradine (Corlanor) 5 mg tablet Indications:POTS (postural orthostatic tachycardia syndrome)Take 1 tablet (5 mg) by mouth two times daily. 60 tablet 1115Active Active Problems ProblemNoted DateDiagnosed SapcEmztsk32/27/2025Chronic sinusitis, unspecified 01/14/2025GI bleed07/25/20242401Oiizykp92/19/2024ongenital duplication cyst of tolacpcbe73/19/0110Putjggdcaofb59/19/5369Ylxdbuos68/19/2024ostural orthostatic tachycardia gosbgbob62/31/2024Malnutrition compromising bodily function 03/17/2024Mass of icyvauu4702/15/2024hest pain11/27/2023Mild intermittent asthma without xdeseqimwxee52/04/2024OVID-19 long tdmzlk3510/23/2023 Assessment & Plan (12/20/2023 9:56 AM EDT): Symptoms started after Covid + Cervical spine hwgbmhg4510/23/2023Syncope and ytnkeqez19/04/2024 Assessment & Plan (12/20/2023 10:02 AM EDT): Currently stable, without any syncopal episodes since last visit Provider had extended discussion with patient regarding management of orthostasis and syncope with adequate hydration and electrolyte replacement, she states she does not like eating salt or adding salt to her diet therefore I recommended Pedialyte, Gatorade, Powerade, IV liquid hydration to increase her sodium intake and fluid retention she voiced understanding and is agreeable. Will have pt f/U in neurocardiogenic clinic with Natalie jaime. Aepryslsxuwn85/04/2024 Assessment & Plan (12/20/2023 9:56 AM EDT): She was intolerant of metoprolol 25 mg daily- r/t lightheadedness/dizziness and fatigue - thereforewill start Diltiazem 120 mg daily and resume pyridostigmine 30-60 mg up to 3 times a day for low b/p, lightheadedness/dizziness or syncope. Pt to call office for any side effects or concerns Bamqoypxki01/04/2024Gastroesophageal reflux njefwdj7010/23/2023Lumbar vfuhqmqoyxnpq90/01/2023OE (dyspnea on exertion)01/30/2023Family history of coronary artery xszdzkj9901/30/2023Other saqnaai8601/30/2023Lumbar disc herniation with wceluaxgydave77/14/2023Intractable back pain07/30/2022Vitamin D deficiency 07/04/2022lass 1 obesity in adult09/03/2020Intercostal pain1Dizziness 08/24/20203444Uvqdblyab15/06/0767Klwcmfqandvxybr52/06/2021Irritable bowel syndrome 12/05/2013Other nznoqqdhpsmg98/18/2014Depressive dfjxfcci46/06/2014 Encounters DateTypeDepartmentCare QvqzTmkzjmhedzu12/17/2025 2:00 PM ESTOffice Visit [facility] [address] [place] [address] Artemio Post MD POTS (postural orthostatic tachycardia syndrome) (Primary Dx); Mast cell zolqtejwsa44/17/2025Telephone [facility] [address] [place] [address] Libby Suh 03/21/2025Results Follow-Up [facility] [address], [address] [place] [address] Sierra Hurtado MD Tilt table1 8:22 AM EDT - 02/24/2025 11:59 PM EDTHospital Encounter [facility] [address] [place] [phone] Postural orthostatic tachycardia syndrome Discharge Disposition: Home or Self Care ()02/24/20255095Gedpba88/02/2025bstract [facility] [address] [place] [phone] Tonie Wolff MA from Last 3 Months Family History Medical HistoryRelationNameCommentsAbnormal EKGFatherMarkClotting disorderFather MarkHypotensionFatherMarkStrokeFatherMarkDiabetes type IIFather's Sister 1Molly Diabetes type IIFather's Sister 2MollyHeart failureMaternal GrandfatherEdger StrokeMaternal GrandfatherEdgerAnginaMaternal GrandmotherBettyHeart attack Maternal GrandmotherBettyHeart diseaseMaternal GrandmotherBettyHeart murmur Maternal GrandmotherBettyHypertensionMaternal GrandmotherBettyLung disease Mother's Brother 1MikeLung diseaseMother's Brother 2MikeRelationNameStatus CommentsFatherMarkAliveFather's Sister 1MollyAliveFather's Sister 2MollyAlive Maternal GrandfatherEdgerAliveMaternal GrandmotherBettyAliveMother's Brother 1 MikeAliveMother's Brother 2MikeAlive Social History Tobacco UseTypesPacks/DayYears UsedDateSmoking Tobacco: NeverSmokeless Tobacco: Never Tobacco Cessation:Counseling Given: Not Answered Alcohol UseStandard Drinks/WeekCommentsNot Currently0 (1 standard drink = 0.6 oz pure alcohol)PA Safety & EnvironmentAnswerDate RecordedFear of Current or Ex-PartnerNot on file10/09/2023Emotionally AbusedNot on file10/09/2023hysically AbusedNot on file10/09/2023Sexually AbusedNot on file10/09/2023hysically or Sexually AbusedNot on file10/09/2023CommentsNoSex and Gender Information ValueDate RecordedSex Assigned at DpbgkNggsse46/27/2025 9:30 AM EDTLegal Sex Gzojii5811/16/2021 11:16 PM EDTGender RrjcuayfKwfxok17/27/2025 9:30 AM EDTSexual OrientationChoose not to rerfzren00/27/2025 9:30 AM EDT Last Filed Vital Signs Vital SignReadingTime TakenCommentsBlood Eqcphmnp713/80107/07/2024 1:49 PM EST Drsdp5368/07/2025 9:15 AM EDTTemperature--Respiratory Bmtu365801/14/2025 9:34 AM EDTOxygen Xtzykjxffl34%05/06/2025 1:49 PM ESTInhaled Oxygen Concentration-- Corrgt76.9 kg (132 lb)05/06/2025 1:49 PM JHDRiginc161.9 cm (5' 1 )05/06/2025 1:49 PM ESTBody Mass Index24.9405/06/2025 1:49 PM EST Plan of Treatment Health MaintenanceDue DateLast DoneCommentsCT Mslwxlfjobxj30/03/1976Colonoscopy 1975Colorectal Cancer Xyvbzlomf52/03/1976FIT-DNA5458AQI53 1975 FOBT1975 2806Adqkclczugymf59/03/1976Depression Stcbxzzpe42/03/1988Hepatitis B Vaccines (1 of 3 - 19+ 3-dose series)1994Pneumococcal Vaccine: Pediatrics (0 to 5 Years) and At-Risk Patients (6 to 64 Years) (1 of 2 - PCV)1994Pap Smear1996Adult Uonoqbb2406/23/1997Cervical Cancer Qyepqwwau65/03/2006 HPV/Yjdrcc86/03/2467Wjfrsavng25/03/2016COVID-19 Vaccine (2 - 2024- season) /Influenza Vaccine (#1)/Zoster Vaccines (1 of 2)2025HIB VaccinesAged OutNo longer eligible based on patient's age to complete this topicHPV VaccinesAged OutNo longer eligible based on patient's age to complete this topicIPV VaccinesAged OutNo longer eligible based on patient's age to complete this topicMeningococcal B VaccineAged OutNo longer eligible based on patient's age to complete this topicMeningococcal VaccineAged OutNo longer eligible based on patient's age to complete this topicRotavirus Vaccines Aged OutNo longer eligible based on patient's age to complete this topic Procedures Procedure NamePriorityDate/TimeAssociated DiagnosisCommentsTILT TABLERoutine 02/24/2025 9:18 AM EDT Postural orthostatic tachycardia syndrome from Last 3 Months Results * Tilt table (02/24/2025 9:18 AM EDT)Anatomical RegionLateralityModalityOther Specimen (Source)Anatomical Location / LateralityCollection Method / Volume Collection TimeReceived Time Impressions 02/24/2025 11:01 AM EDT Positive study for Postural Orthostatic Tachycardia Syndrome RECOMMENDED FOLLOW UP: Call Primary Care Physician to schedule an appointment Narrative 02/24/2025 11:01 AM EDT A Tilt Table test was performed on 02/24/25 at [facility] METHOD: ??The test was explained to Soumya Rosenberg, and the information sheet was signed. ECG monitoring was initiated and a blood pressure cuff was applied to the upper arm. An IV line was placed. AT BASELINE, ??Had a supine blood pressure of 149/73 MmHg, a heart rate of 89 and Normal Sinus rhythm. Symptoms at baseline: ??chronic back pain, dizzy, lightheaded, headache, palpitations. THE PATIENT WAS TILTED to 70 degree head upright position for 8 minutes. Patient had a maximum blood pressure of 154/85 mmHg, a heart rate of 110 bpm and Sinus Tachycardia rhythm at minute 4. Patient had a minimum blood pressure of 126/84 mmHg, a heart rate of 114 bpm and Sinus Tachycardia rhythm at minute 6. Symptoms during initial Tilt: chronic back pain, dizzy, lightheaded, headache, palpitations, sob, brain fog, nausea. THE TEST WAS COMPLETED and the patient was returned to supine position. Patient had a blood pressure of 141/75 mmHg, a heart rate of 90 bpm, and Normal Sinus rhythm. Symptoms Post Test: chronic back pain, dizziness, lightheaded. FINAL Authorizing ProviderResult TypeResult StatusSaRivendell Behavioral Health Services CARDIAC SERVICES PROCEDURESFinal Result from Last 3 Months Insurance Care Teams Team MemberRelationshipSpecialtyStart DateEnd Date William Weston PA [facility]10/16/23
--- OUTSIDE RECORDS SUMMARY | 2025-05-09 16:20 | XMS_ITS | Patient Health Record ---
Author Organization [facility] [place] Address [address] [place] [address] Care Team Providers Care Plastics Fitter Name Role Phone Josh NAVARRETE, Diandra Primary Care Provider Unavailab Ioana Mcintosh Unavailable [phone] IOANA CHAPIN Unavailable [phone] Results Component Value Reference Range Notes URINE CULTURE (Not yet revie wed by provider) Interpretation: Performing Lab:[facility] [address] PH:[phone] Notes/Report: Specimen Description .CLEAN CATCH URINE Special RequestsSite: Urine Culture CITROBACTER KOSERI (DIVERSUS) >100,000 CFU/ML Report Status FINAL 08/23/2024 Organism CITROBACTER KOSERI (DIVERSUS) >100,000 CFU/ML Method BYRON Ceftriaxone <=0.25 SUSCEPTIBLE Gentamicin <=1 SUSCEPTIBLE Levofloxacin <=0.12 SUSCEPTIBLE Nitrofurantoin 32 SUSCEPTIBLE Piperacillin/Tazobactam <=4 SUSCEPTIBLE Tobramycin <=1 SUSCEPTIBLE Trimethoprim/Sulfa <=20 SUSCEPTIBLE Reason For Referral No Information Problems Problem Type SNOMED Code ICD Code Onset Dates Problem Status W/U Status Risk Notes Problem Obesity (957340862) Obesity, unspecified (E66.9) ActiveconfirmedProblemChronic pain (82045652)Other chronic pain (G89.29)Active confirmedProblemMild intermittent asthma (846811415)Mild intermittent asthma, uncomplicated (J45.20)ActiveconfirmedProblemSciatica (06944089)Lumbago with sciatica, left side (M54.42)ActiveconfirmedProblemAnesthesia of skin (098755833) Anesthesia of skin (R20.0)ActiveconfirmedProblemParesthesia (finding) (72313743) Paresthesia of skin (R20.2)ActiveconfirmedProblemDisorder of musculoskeletal system (037127)Other symptoms and signs involving the musculoskeletal system (R29.898)ActiveconfirmedProblemGastroesophageal reflux disease (734243054)GERD (gastroesophageal reflux disease) (K21.9)ActiveconfirmedProblemVitamin D deficiency (24030969)Vitamin D deficiency (E55.9)ActiveconfirmedProblem Fibromyalgia (183284361)Fibromyalgia (M79.7)ActiveconfirmedProblemProlapsed lumbar intervertebral disc (059077220)Lumbar disc herniation (M51.26)Active confirmedProblemGastro-esophageal reflux disease (347592218)Gastro-esophageal reflux disease (K21.9)ActiveconfirmedProblemPostural orthostatic tachycardia syndrome (441915693)Postural orthostatic tachycardia syndrome (G90.A)Active confirmed Encounters Encounter Location Date Provider Diagnosis [facility] [address] [place] [address] 08/01/2024 Ioana Chapin 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 and Psoriasis vulgaris L40.0 [facility] [address] [place] [address] 12/16/2024 IOANA CHAPIN Assessments Encounter Date Diagnosis (ICD Code) Assessment Notes Treatment Notes Treatment Clinical Notes Section Notes 08/01/2024 Other psoriatic arthropathy (ICD -10 - L40.59) 08/01/2024Psoriasis vulgaris (ICD-10 - L40.0) Plan Of Treatment Pending Test Test Name Order Date URINE CULTURE 08/21/2024 Insurance Providers Payer Name Payer Address Payer Phone Subscriber Number Group Number Insured Name Patient Relationship to Insured Coverage Start Date Coverage End Date [employer] [place] [employer] [address] [address] [place] [address] [id number] Nathan Rosenberg - patient is the [id number] 2024
--- OUTSIDE RECORDS SUMMARY | 2025-05-09 16:20 | XMS_ITS | Clinical Summary ---
Author Organization [facility] Address [address], [address] [place] [address] Care Team Providers Care Audio Director Name Role Phone Diandra Moreno MD Primary Care Provider [phone] Allergies Active AllergyReactionsCriticalityNoted DateCommentsSucralfateHivesMedium 4Cat DanderAnaphylaxis,Hives,Shortness Of ZrokcmMdox91/29/2021 Plbxuvojsq77/14/2025 Other Reaction(s): dizziness, horrible headache, insomnia EmvherupqtalmWitllVnqwuc69/26/2023abapentinHives,Shortness Of BreathHigh 08/07/20221706AigljzcgtjiJwbxErj61/14/1391DxrdoizwukkcwqIwz58/09/2023 Other reaction(s): vomiting/rash KxurvylsbzGildnQyswlr01/12/2022 Medications MedicationSigDispense QuantityRefillsLast FilledStart DateEnd DateStatus levocetirizine (XYZAL) 5 MG tablet Take 1 tablet by mouth nightlyActive albuterol sulfate HFA (VENTOLIN HFA) 108 (90 Base) MCG/ACT inhaler Inhale 2 puffs into the lungs every 4 hours as needed for WheezingActive [facility] Fiber Gummies 2 g CHEW Take by mouthActive ondansetron (ZOFRAN) 4 MG tablet Take 1 tablet by mouth daily02/26/2024ctive famotidine (PEPCID) 20 MG tablet Indications:Gastroesophageal reflux disease, unspecified whether esophagitis presentTake 1 tablet by mouth nightly at bedtime. 30 tablet 5Active Additional Information Patient taking differently: 40 mgOral2 TIMES DAILY, at bedtime., Reported on 12/06/2024 FLUoxetine (PROZAC) 10 MG capsule Take 1 capsule by mouth daily5Active SKYRIZI PEN 150 MG/ML SOAJ INJECT 1 PEN (150 MG) SUBCUTANEOUSLY AT WEEKS 0 AND 4, THEN 1 PEN (150 MG) EVERY 12 WEEKS LPCJASPAWX22/21/2025Active B Complex CAPS Take 1 capsule by mouth daily 30 capsule 5Active fexofenadine (TOLU ALLERGY) 180 MG tablet Take 1 tablet by mouth dailyActive pantoprazole (PROTONIX) 40 MG tablet Indications:Gastroesophageal reflux disease, unspecified whether esophagitis presentTake 1 tablet by mouth twice daily 90 tablet tive azelastine (OPTIVAR) 0.05 % ophthalmic solution INSTILL 1 DROP INTO AFFECTED EYE ONCE DAILY NEEDED FOR ALLERGIC EYE SYMPTOMS 02/18/2025tive EPINEPHrine (EPIPEN) 0.3 MG/0.3ML SOAJ injection INJECT CONTENTS OF 1 PEN INTRAMUSCULARY DIRECTED NEEDED FOR SEVERE ALLERGIC XMTWLAHU68/12/2025tive vitamin D (ERGOCALCIFEROL) 1.25 MG (74570 UT) CAPS capsule Take 1 capsule by mouth Once a week at 5 PM5Active hydrOXYzine HCl (ATARAX) 10 MG tablet TAKE 1 TABLET BY MOUTH ONCE DAILY IPGWYF8901/01/2025tive LORATADINE CHILDRENS 5 MG/5ML solution TAKE 20 ML BY MOUTH TWICE DAILY FOR HIVES01/13/2025tive pyRIDostigmine (MESTINON) 30 MG tablet Take 1 tablet by mouth 3 times daily01/17/2025tive Spacer/Aero-Holding Chambers (EQ SPACE CHAMBER ANTI-STATIC) SANDI USE 1 DEVICE ONCE DAILY NEEDED DIRECTED WITH GCJYLJX1003/19/2025tive Active Problems Patient Care Coordination No te Formatting of this note is d ifferent from the original. Dr Slater-GI GERD Checklist: ITEM ORDERED DONE NOTES LAB WORK- DONE TREATED [] [] [] [] EGD H. PYLORI-TREATED STOOL ORDERED [] [] [] [x] [] [] 05/30/23 Dr Slater, H Pylori neg AR Manometry (hold blood thinners for 5 days) [x] [x] Scheduled for 01/08/24 -mlg GBUS [] [] UGI [x] [] [place] (hold blood thinners & PPI for 7 days) [] [] CARDIAC CLEARANCE [] [] MEDICAL CLEARANCE [] [] ProblemNoted DateDiagnosed DateGI bleed07/25/2024Gastroesophageal reflux disease 06/26/2024Other vmxlyjnbzvwn62/06/2025Projectile vomiting with fqrhwm2205/11/2024 POTS (postural orthostatic tachycardia syndrome)03/20/20246933Encbrat59/29/2024 Malnutrition compromising bodily avykgtad71/28/2024Subepithelial gastric lesion 03/13/2024Syncope and hqccaxww31/23/2024Subepithelial gastric mass03/04/2024 Gastric mass02/15/20245810Hpwqzyjzmjjv80/09/2024hest pain11/27/2023Lumbar yocursazqsefn67/01/9547Neimzazml30/06/2021apid zhztnoatzwef67/06/2021Obesity (BMI 30-39.9)08/24/2020GERD (gastroesophageal reflux disease)08/24/2020ysphagia 08/24/2020 Resolved Problems ProblemNoted DateDiagnosed DateResolved DateSyncope due to orthostatic aikmnamidbs83 Encounters DateTypeDepartmentCare YaqaZrjhfjmvrno63/09/2025Ref[facility] [address] [place] [address] Indira Garcia PA-C Medication Refillfrom Last 3 Months Immunizations ImmunizationAdministration DatesNext DueInfluenza Virus Rxhbonc8403/11/2020 Family History Medical HistoryRelationNameCommentsHeart DiseaseFatherRelationNameStatusComments FatherAliveMotherAlive Social History Tobacco UseTypesPacks/DayYears UsedDateSmoking Tobacco: NeverSmokeless Tobacco: Never Tobacco Cessation:Counseling Given: Not Answered Alcohol UseStandard Drinks/WeekCommentsNo0 (1 standard drink = 0.6 oz pure alcohol)[facility] UtilitiesAnswerDate RecordedIn the past 12 months has the electric, gas, [employer], or water [employer] threatened to shut off services in your home?No 05/11/2024UDIT-CAnswerDate RecordedQ1: How often do you have a drink containing alcohol?Never11/19/2024Q2: How many drinks containing alcohol do you have on a typical day when you are drinking?Patient does not drink11/19/2024Q3: How often do you have six or more drinks on one occasion?Never11/19/2024PHQ-2AnswerDate RecordedPHQ-9 Total Xakal364Hunger Vital SignAnswerDate RecordedWithin the past 12 months, you worried that your food would run out before you got the money to buymore.Never true05/11/2024Within the past 12 months, the food you bought just didn't last and you didn't have money to get more.Never true 05/11/2024RAPARE - TransportationAnswerDate RecordedIn the past 12 months, has lack of transportation kept you from medical appointments or from getting medications?No05/11/2024In the past 12 months, has lack of transportation kept you from meetings, work, or from getting things needed for daily living?No 05/11/2024Housing Stability Vital SignAnswerDate RecordedIn the last 12 months, was there a time when you were not able to pay the mortgage or rent on time?No 11/27/2023In the last 12 months, how many places have you lived?In the last 12 months, was there a time when you did not have a steady place to sleep or slept in [facility] (including now)?No11/27/2023Housing Stability Vital SignAnswerDate RecordedIn the last 12 months, was there a time when you were not able to pay the mortgage or rent on time?No05/11/2024In the past 12 months, how many times have you moved where you were living?t any time in the past 12 months, were you homeless or living in a half-way (including now)?No 05/11/2024Food InsecurityAnswerDate RecordedWithin the past 12 months, you worried that your food would run out before you got the money to buymore.1 05/11/2024Within the past 12 months, the food you bought just didn't last and you didn't have money to get more.Interpersonal Safety Domain Source: IP Abuse ScreeningAnswerDate RecordedPhysical joyqeGmghgt01/02/2025Verbal abuse Thxwqh5511/19/2024Emotional tbpzoTymljy33/02/2025Financial unthbWziltx77/02/2025 Sexual hyyyeAivuoj19/02/2025CommentsNoSex and Gender InformationValue Date RecordedSex Assigned at ZxmobFraykk34/07/2021 6:26 PM EDTLegal SexFemale 06/30/2012 12:57 PM ESTGender SoctkrfvVtgarw81/07/2021 6:26 PM EDTSexual OrientationNot on file Last Filed Vital Signs Vital SignReadingTime TakenCommentsBlood Gntfymno462/6707 5:45 PM EDT Cgvoj712312/06/2024 5:45 PM VMTXlxxtpfglbu08.1 ??C (98.7 ??F)12/06/2024 3:03 PM EDTRespiratory Amtk361812/06/2024 3:03 PM EDTOxygen Vpqpcdvptl62%12/06/2024 5:45 PM EDTInhaled Oxygen Concentration--Vtsspl30.2 kg (135 lb)12/06/2024 3:03 PM EDT Cwetto492.9 cm (5' 1 )12/06/2024 3:03 PM EDTBody Mass Index25.5107 3:03 PM EDT Plan of Treatment Health MaintenanceDue DateLast DoneCommentsDepression Hugrnu7306/23/1987HIV screen 1990Hepatitis C vaptxs2006/23/1993DTaP/Tdap/Td vaccine (1 - Tdap)1994 Hepatitis B vaccine (1 of 3 - 19+ 3-dose series)1994Diabetes screen 2010reast cancer dcjpjp5906/23/2015FIT/FOBT: Average risk2020Fecal- DNA (Cologuard): Average risk2020igmoidoscopy/CT oredndytyxia97/03/2021 Flu vaccine (#1)510/COVID-19 Vaccine (2 - 2024- season) 502/7404Djsnpp76/07/263755/1414Cdwfhquldlv86/18/202804/, 10/11/2020olorectal Cancer Fjvouv8809/06/2027Hepatitis A vaccineAged OutNo longer eligible based on patient's age to complete this topicHib vaccineAged OutNo longer eligible based on patient's age to complete this topicMeningococcal (ACWY) vaccineAged OutNo longer eligible based on patient's age to complete this topicMeningococcal B vaccineAged OutNo longer eligible based on patient's age to complete this topicPneumococcal 0-49 years VaccineAged OutNo longer eligible based on patient's age to complete this topicPolio vaccineAged OutNo longer eligible based on patient's age to complete this topic Medical Devices ImplantedTypeAreaManufacturerDevice IdentifierShelf Expiration DateModel / Serial / LotClip Hemstas Del Sys 17 Psf760 Cm Ergo Hndl Resol 360 Ultra - [id number] Implanted:Qty: 2 on 09/05/2024 by [facility][id number] / / [id number] Procedures Procedure NamePriorityDate/TimeAssociated DiagnosisCommentsLIPID PANELRoutine 08/25/2020 5:51 AM EDT from Last 3 Months or Most Recently Relevant to Health Maintenance Results * (ABNORMAL) Lipid panel - fasting (08/25/2020 5:51 AM EDT)ComponentValueRef RangeTest MethodAnalysis TimePerformed AtPathologist EuisvusdaKotaiuakbtg839 <200 mg/dL08/25/2020 5:51 AM EDTMERCY LABORATORIESComment: Cholesterol Guidelines: <200 Desirable 200-240 ??Borderline >240 Undesirable HDL36(L)>40 mg/dL08/25/2020 5:51 AM EDTMERCY LABORATORIESComment: HDL Guidelines: <40 Undesirable 40-59 ?Borderline >59 Desirable LDL Hpfsacyvxrk8524 - 130 mg/dL08/25/2020 5:51 AM EDTMERCY LABORATORIESComment: LDL Guidelines: <100 Desirable 100-129 ?? Near to/above Desirable 130-159 ?? Borderline >159 Undesirable Direct (measured) LDL and calculated LDL are not interchangeable tests. Chol/HDL Ratio4.5<504 5:51 AM EDTMERCY LABORATORIESComment:Triglycerides 106<150 mg/dL08/25/2020 5:51 AM EDTMERCY LABORATORIESComment: Triglyceride Guidelines: <150 Desirable 150-199 ??Borderline 200-499 ??High >499 Very high Based on AHA Guidelines for fasting triglyceride, February 2012. VLDLNOT REPORTED1 - 30 mg/dL08/25/2020 5:51 AM EDTMERCY LABORATORIESSpecimen (Source)Anatomical Location / LateralityCollection Method / VolumeCollection TimeReceived Time08/25/2020 5:51 AM EDT08/25/2020 5:52 AM EDT Narrative Authorizing ProviderResult TypeResult StatusMaura Mercado RAMP JOCKEY - NPCHEMISTRY ORDERABLESFinal ResultPerforming OrganizationAddressCity/State/ZIP CodePhone Number [place] [id number] [place] [address], [facility] [phone] from Last 3 Months or Most Recently Relevant to Health Maintenance Insurance Advance Directives * Full Code (Latest Code Status on File) Date ActivatedDate InactivatedComments07/25/2024 4:22 PM07/25/2024 10:16 PM * Full Code Date ActivatedDate LctkcliwmofVcdyltpv42/21/2024 10:56 PM05/13/2024 2:07 PM * Full Code Date ActivatedDate AjedeykmmheIrmzwksi45/27/2024 4:48 PM10 6:34 PM * Full Code Date ActivatedDate KgykcxcvhkfTosxgwoy57/24/2024 7:38 AM10 5:25 PM * Full Code Date ActivatedDate LclhhquluqyKulwxugz37/23/2024 6:40 PM10 9:49 PM Care Teams Team MemberRelationshipSpecialtyStart DateEnd Date Diandra Moreno MD [address] [place] [address] PCP - Rioqtjl35/14/24
--- OUTSIDE RECORDS SUMMARY | 2025-05-09 16:20 | XMS_ITS | Clinical Summary ---
Author Organization [facility] Address [address] 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 Name Role Phone Unavailable Primary Care Provider Unavailabl e Allergies Active AllergyReactionsCriticalityNoted DateCommentsCat DanderAnaphylaxis,Hives, Itching,Shortness of jxmxzrOhpj34/19/2024examethasoneHives,Palpitations, Shortness of jhzjkdUqoe31/19/2024rednisoloneHives,Palpitations,Shortness of jyabndVifh08/19/2024 Medications MedicationSigDispense QuantityRefillsLast FilledStart DateEnd DateStatus albuterol 90 mcg/actuation inhaler INHALE 1 TO 2 PUFFS BY MOUTH EVERY 8 HOURS YBBABY9611/28/2023ctive atorvastatin (Lipitor) 40 mg tablet Take 1 tablet (40 mg) by mouth once daily in the morning. Take before meals. 12/20/2023ctive amitriptyline (Elavil) 10 mg tablet TAKE 1 TABLET BY MOUTH NIGHTLY FOR 7 DAYS THEN 2 NIGHTLY FOR 7 DAYS THEN 3 NIGHTLY FOR 7 DAYS THEN 4 WXOZVWD6412/05/2023ctive baclofen (Lioresal) 10 mg tablet Take 1 tablet (10 mg) by mouth 3 times a day.08/01/2023ctive busPIRone (Buspar) 5 mg tablet Take 1 tablet (5 mg) by mouth every 12 hours.12/27/2023 citalopram (CeleXA) 20 mg tablet Take 1 tablet (20 mg) by mouth early in the morning..03/18/2024ctive Cartia XT 120 mg 24 hr capsule Take 1 capsule (120 mg) by mouth once daily.12/20/2023ctive ergocalciferol (Vitamin D-2) 1.25 MG (47380 UT) capsule Take 1 capsule (1,250 mcg) by mouth every 7 days.11/27/2023 escitalopram (Lexapro) 5 mg tablet Take 1 tablet (5 mg) by mouth early in the morning..02/26/2024 famotidine (Pepcid) 20 mg tablet Take 1 tablet (20 mg) by mouth once daily at bedtime.03/09/2024 famotidine (Pepcid) 20 mg tablet TAKE 1 TABLET BY MOUTH TWICE DAILY NEEDED FOR 90 DAYS04/01/2024 hydrOXYzine HCL (Atarax) 10 mg tablet Take 1 tablet (10 mg) by mouth early in the morning..12/27/2023 lansoprazole (Prevacid) [address] capsule Take 1 capsule (15 mg) by mouth 2 times a day.07/12/2023ctive metoprolol tartrate (Lopressor) 25 mg tablet 11/27/2023 midodrine (Proamatine) 5 mg tablet Take 1 tablet (5 mg) by mouth 3 times a day.10/23/2023 mirtazapine (Remeron) 15 mg tablet Take 1 tablet (15 mg) by mouth once daily at bedtime.02/21/2024 ondansetron ODT (Zofran-ODT) 4 mg disintegrating tablet DISSOLVE 1 TABLET IN MOUTH EVERY 4 HOURS NEEDED FOR NAUSEA OR VOMITING 03/18/2024 ondansetron (Zofran) 4 mg tablet Take 1 tablet (4 mg) by mouth early in the morning..02/26/2024 pantoprazole (ProtoNix) 20 mg EC tablet Take 1 tablet (20 mg) by mouth every 12 hours.02/21/2024 propranolol (Inderal) 10 mg tablet Take 1 tablet (10 mg) by mouth every 12 hours.01/24/2024 pantoprazole (ProtoNix) 40 mg EC tablet Take 1 tablet (40 mg) by mouth once daily in the morning. Take before meals. 01/28/2024ctive pyridostigmine (Mestinon) 60 mg tablet Take 1 tablet (60 mg) by mouth 3 times a day.12/20/2023ctive sucralfate (Carafate) 100 mg/mL suspension 04/04/2024ctive sucralfate (Carafate) 1 gram tablet TAKE 1 TABLET BY MOUTH TWICE DAILY ON AN EMPTY STOMACH FOR 30 DAYS06/29/2023 Active sulfamethoxazole-trimethoprim (Bactrim DS) 800-160 mg tablet 03/18/2024ctive topiramate (Topamax) 25 mg tablet Take 1 tablet (25 mg) by mouth every 12 hours.06/01/2023ctive Active Problems ProblemNoted DateDiagnosed DateGastroesophageal reflux lsbikxp0405/28/2024 Subepithelial esophageal mass05/28/20247856Fglejbv49/19/2024ongenital duplication cyst of rodhpzbva47/19/2024Hiatal hernia with gastroesophageal zoywlj8804/08/2024 Livjyyvjdvns97/19/2024ostural orthostatic tachycardia syndrome (POTS)04/08/2024 Qvicqetw67/19/2024 Social History Tobacco UseTypesPacks/DayYears UsedDateSmoking Tobacco: NeverSmokeless Tobacco: Never Tobacco Cessation:Counseling Given: Not Answered Alcohol UseStandard Drinks/WeekCommentsNot Currently0 (1 standard drink = 0.6 oz pure alcohol)AUDIT-CAnswerDate RecordedQ1: How often do you have a drink containing alcohol?Never04/15/2024Q2: How many drinks containing alcohol do you have on a typical day when you are drinking?Patient does not drink04/15/2024Q3: How often do you have six or more drinks on one occasion?Never04/15/2024HQ-2 AnswerDate RecordedPatient Health Questionnaire-2 Jcuky32906/15/2023 CommentsUnknownSex and Gender InformationValueDate RecordedSex Assigned at Not on fileLegal TzoOpjpmn27/14/2024 1:00 PM ESTGender IdentityNot on fileSexual OrientationNot on file Last Filed Vital Signs Vital SignReadingTime TakenCommentsBlood Fchgbxuv907/6204/15/2024 10:19 AM EST Eyxci029604/15/2024 10:19 AM ESTTemperature--Respiratory Xmvt343606/15/2023 10:19 AM ESTOxygen Msxfbzahra34%04/15/2024 10:19 AM ESTInhaled Oxygen Concentration-- Wplftq64.9 kg (132 lb)04/15/2024 10:19 AM SWECvagha159.9 cm (5' 1 )04/15/2024 10:19 AM ESTBody Mass Index24.9404/15/2024 10:19 AM EST Plan of Treatment Health MaintenanceDue DateLast DoneCommentsHIV Akwuvbzug46/03/1976Lipid Panel 1975Yearly Adult Ugvuvzxa80/03/1976MMR Vaccines (1 of 1 - Standard series) 1976Diabetes Kglyxoger28/03/1994Hepatitis C Ykczdvvys94/03/1994Hepatitis B Vaccines (1 of 3 - 19+ 3-dose series)1994Pneumococcal Vaccine: Pediatrics and At-Risk Adult Patients (1 of 2 - PCV)1994Cervical Cancer Screening 1996HPV/Icmvlq9006/23/1996Pap Smear1996DTaP/Tdap/Td Vaccines (1 - Tdap)06/23/19970264Bwcchvpoe50/03/2016COVID-19 Vaccine (2 - season) /Influenza Vaccine (#1)/Zoster Vaccines (1 of 2)2025HIB VaccinesAged OutNo longer eligible based on patient's age to complete this topicHPV VaccinesAged OutNo longer eligible based on patient's age to complete this topicHepatitis A VaccinesAged OutNo longer eligible based on patient's age to complete this topicIPV VaccinesAged OutNo longer eligible based on patient's age to complete this topicMeningococcal VaccineAged OutNo longer eligible based on patient's age to complete this topicRotavirus VaccinesAged Out No longer eligible based on patient's age to complete this topic Insurance
--- OUTSIDE RECORDS SUMMARY | 2025-05-09 16:20 | XMS_ITS | Clinical Summary ---
Author Organization [employer] s tem Address [id number] [address] [place] [address] Care Team Providers Care Rental Sales Representative Name Role Phone Services, [facility] Primary Care Provider Allergies Active AllergyReactionsCriticalityNoted DateCommentsCat Hair Standardized Allergenic ExtractAnaphylaxis,Hives,Shortness Of FazcyhWgvu90/29/2021 DexamethasoneHives,RefcsWijc04/16/2964HitbiecderTpikhXkouqv61/20/2023rednisone EhiyrDrao49/12/2022 Medications MedicationSigDispense QuantityRefillsLast FilledStart DateEnd DateStatus albuterol (PROVENTIL HFA;VENTOLIN HFA) 90 mcg/actuation inhaler Indications:Mild intermittent asthma without complicationInhale 2 puffs every 6 (six) hours as needed for wheezing. 18 g 08/10/2022ctive Additional Information Patient not taking.Reported on 07/24/2023 pantoprazole (PROTONIX) 40 mg EC tablet TAKE 1 TABLET BY MOUTH ONCE DAILY IN THE MORNING BEFORE BREAKFAST 30 tablet 08/10/2022ctive Additional Information Patient taking differently: 40 mg oral, TAKE 1 TABLET BY MOUTH ONCE DAILY IN THE MORNING BEFORE BREAKFAST,Indications: gastroesophageal reflux disease, Reported on 02/27/2023 famotidine (PEPCID) 20 mg tablet Indications:gastroesophageal reflux disease1 tablet (20 mg total) nightly as needed Indications: gastroesophageal reflux disease.Active cholecalciferol, vitamin D3, 2,000 units tablet Take by mouth daily.Active pantoprazole (PROTONIX) 40 mg EC tablet Take 1 tablet (40 mg total) by mouth every morning before breakfast.01/28/2024 Active Active Problems ProblemNoted DateDiagnosed DateDOE (dyspnea on exertion)01/30/2023Other fatigue 01/30/2023Family history of coronary artery mgoteka8301/30/2023Herniated lumbar intervertebral disc01/10/2023Lumbar disc herniation with oawbagpczkncl21/14/2023 Intractable back pain07/30/20226594Ublupadmhgbg16/14/2023Vitamin D deficiency 07/04/2022Mild intermittent asthma without qfddtrvywdpd58/18/2022lass 1 obesity in adult09/03/2020Intercostal pain09/03/20203195Whwgebfqctkl56/16/2021 Islkuckvuehcvup49/06/2021Gastroesophageal reflux olrlgra4408/24/2020Oropharyngeal rianbvkul12/06/2021 Encounters DateTypeDepartmentCare YslvCemgrupatao04/05/2025 5:29 PM EST - 03/25/2025 9:03 PM [address]Emer[address] [facility] [address] [place] [address] Zafar Tucker MD Syncope, unspecified syncope type (Primary Dx) Discharge Disposition: Home03/25/2025Travelfrom Last 3 Months Immunizations ImmunizationAdministration DatesNext DueInfluenza, Rbtmwnszgtu66/22/2020 Family History Medical HistoryRelationNameCommentsAsthmaBrother 1Deep vein thrombosisFather Factor V Leiden deficiencyFatherHeart diseaseFatherHypertensionFatherPulmonary embolismFatherHypertensionMaternal GrandfatherStrokeMaternal GrandfatherHeart attackMaternal GrandmotherHypertensionMaternal GrandmotherTremorMotherDiabetes Paternal AuntHeart attackPaternal GrandfatherStomach cancerPaternal Grandmother No Known ProblemsSister 1Anesthesia problemsNeg HxBleeding DisorderNeg HxBreast cancerNeg HxColon cancerNeg HxOvarian cancerNeg HxRelationNameStatusComments Brother 1AliveBrother 2AliveFatherAliveMaternal GrandfatherDeceasedMaternal GrandmotherDeceasedMotherAlivePaternal AuntAlivePaternal GrandfatherDeceased Paternal GrandmotherDeceasedSister 1AliveSister 2Alive Social History Tobacco UseTypesPacks/DayYears UsedDateSmoking Tobacco: NeverPassive Smoke Exposure: NeverSmokeless Tobacco: Never Tobacco Cessation:Counseling Given: Not Answered Alcohol UseStandard Drinks/WeekCommentsNot Currently0 (1 standard drink = 0.6 oz pure alcohol)Housing InstabilityAnswerDate RecordedAre you worried or concerned that in the next two months you may not have stable housing that you own, rent or stay in as a part of a household?No3ChildcareAnswerDate Recorded LunbzmhmsKyxlbrn61/12/2019EmploymentAnswerDate RecordedEmploymentUnknown 10/30/2018Hunger ScreeningAnswerDate RecordedWithin the past 12 months we worried whether our food would run out before we got money to buy more.Never True03/25/2025Within the past 12 months the food we bought just didn't last and we didn't have money to get more.Never True03/25/2025Purpose - LifeAnswerDate RecordedPurpose and direction in idybDtqjzcq95/31/2021CommentsNoSex and Gender InformationValueDate RecordedSex Assigned at EaxwrSgxqmk73/31/2023 11:31 AM EDTLegal LipTnjnvw42/06/2015 11:41 AM EDTGender DcswugvqDlsvep10/31/2023 11:31 AM EDTSexual UhrczvcalafAmjfgcji09/12/2023 6:41 PM EDT Last Filed Vital Signs Vital SignReadingTime TakenCommentsBlood Buprpvog679/8503/25/2025 8:45 PM EST Vukix661703/25/2025 8:45 PM ZUVPmacygiuhme59.6 ??C (97.8 ??F)03/25/2025 7:45 PM ESTRespiratory Hehs892205/25/2024 8:45 PM ESTOxygen Wmhjdqzaat80%03/25/2025 8:45 PM ESTInhaled Oxygen Concentration--Mtywzo39.8 kg (145 lb)03/25/2025 7:10 PM EST Rrxdqj553.9 cm (5' 1 )01/17/2025 7:04 PM EDTBody Mass Index27.408/ 7:04 PM EDT Plan of Treatment Health MaintenanceDue DateLast DoneCommentsDepression Oaxhfqrgu92/03/1988Adult BMI Follow Up Plan1993DTaP,Tdap and Td Vaccines (1 - Tdap)1994COVID- 19 Vaccine (2 - season)Influenza Bhmcsyl8401/19/2025 03/11/2020Adult BMI Sioxobinl39/05/11740005/25/2024Tobacco Awjbbvlfb19/05/2026 03/25/2025 Goals GoalPatient Goal TypeAssociated ProblemsRecent ProgressPatient-Stated?Author SNF Mandy May RN Note: Evaluation of progress towards goal: Current discharge plan is SNF for rehab. - Mandy Hayes RN 08/01/22 3:27 PM Long-Term Goals Shamika Rubin LSW Note: Evaluation of progress towards goal:inpatient rehab vs home Medical Devices Not on file Procedures Procedure NamePriorityDate/TimeAssociated DiagnosisCommentsER EXTRA URINESTAT 03/25/2025 8:26 PM EST POCT NURSING URINE MACROSCOPIC GPKfxezwb03/05/2025 8:21 PM EST XR SPINE LUMBAR 2 OR 3 IPUKZGP55/05/2025 6:[address] BRAIN WO HBWXOTPD71/05/2025 6:44 PM EST TROP I, HIGH SENSITIVITY 1 KODONTWY49/05/2025 6:35 PM EST EXTRA TUBES BLUE WTXBfsuopj30/05/2025 5:38 PM EST EXTRA LWRMZIwhzjoj43/05/2025 5:38 PM EST TROPONIN I, HIGH SENSITIVITY 0 EASTVYOB72/05/2025 5:38 PM EST JPJLKXNYUFACF36/05/2025 5:38 PM EST TROPONIN I, HIGH SENSITIVITY 0 NGBJONMB91/05/2025 5:38 PM EST COMPREHENSIVE METABOLIC HQHFJKEWE03/05/2025 5:38 PM EST CBC WITH AUTO WENXGZONOKAGYCYG46/05/2025 5:38 PM EST ECG 12-RNCTEBCX37/05/2025 5:36 PM EST from Last 3 Months Results * Extra Urine (03/25/2025 8:26 PM EST)ComponentValueRef RangeTest MethodAnalysis TimePerformed AtPathologist SignatureExtra TubeAuto Rjewejxq06/05/2025 10:02 PM ESTACMC HEALTHCARE SYSTEMpecimen (Source)Anatomical Location / LateralityCollection Method / VolumeCollection TimeReceived TimeUrineUrine specimen collection, clean catch / Ppdeitl4403/25/2025 8:26 PM EST03/25/2025 9:26 PM EST Narrative Authorizing ProviderResult TypeResult StatusRachel D Gautam MANPOWER DEVELOPMENT SPECIALIST MANAGER-CNPURINE ORDERABLESFinal ResultPerforming OrganizationAddressCity/State/ZIP CodePhone Number [facility] [address] [place] [address], * POCT Nursing Urine Macroscopic UA (03/25/2025 8:21 PM EST)ComponentValueRef RangeTest MethodAnalysis TimePerformed AtPathologist SignatureMOUNT ASCUT[facility] Urine Specific Gravity1.0151.010, 1.015, 1.020, 1.1470203/25/2025 8:24 PM ESTPROCOMMUNITY REGIONAL MEDICAL CENTER Urine Leukocyte EsteraseNegativeNegative 03/25/2025 8:24 PM ESTPROCOMMUNITY REGIONAL MEDICAL CENTER Urine Nitrite GqoerberEdlquezr19/05/2025 8:24 PM ESTPROMEDIANAHEIM GENERAL HOSPITAL Urine pH7.05.0, 6.0, 6.5, 7.0, 7.5, 8.0, 8.5, 5. 8:24 PM EST [facility] Urine NifdeuxZktgibprYwffhmji53/05/2025 8:24 PM ESTADENA [facility] SYSTEM Urine GlucoseNegative Gqmjzakb35/05/2025 8:24 PM ESTADENA [facility] SYSTEM Urine VtmnxqdNqbxnhyqWjjqnojm19/05/2025 8:24 PM ESTADENA [facility] SYSTEM Urine Urobilinogen0.2 E.U./dL03/25/2025 8:24 PM ESTADENA [facility] SYSTEM Urine NqzeznokbCuurtqpgGajfpkvg20/05/2025 8:24 PM ESTADENA [facility]ALTH SYSTEM Urine Blood/HGBNegativeNegative 03/25/2025 8:24 PM ESTPROFRESNO SURGICAL HOSPITALpecimen (Source) Anatomical Location / LateralityCollection Method / VolumeCollection Time Received AtgaXvgjm01/05/2025 8:21 PM EST03/25/2025 8:24 PM EST Narrative Authorizing ProviderResult TypeResult StatusPairene Tucker [facility]ICAL CENTEROINT OF CARE TEST ORDERABLESFinal ResultPerforming OrganizationAddressCity/State/ZIP CodePhone Number [facility] [address] [place] [address], * X-ray spine lumbar 2 or 3 views (03/25/2025 6:50 PM EST)Anatomical Region LateralityModalityMSK, Neuro, Spine, L-spineN/AComputed RadiographySpecimen (Source)Anatomical Location / LateralityCollection Method / VolumeCollection TimeReceived Time03/25/2025 6:55 PM EST Narrative 03/25/2025 6:56 PM EST XR SPINE LUMBAR 2 OR 3 VWS: 03/25/2025 PROVIDED HISTORY: * ??49 years old Female * ??fall pain COMPARISON: 10/18/2016 FINDINGS/IMPRESSION: 1. ??No acute fracture or dislocation. 2. ??Nonspecific bowel gas pattern without signs of obstruction. 3. ??Moderate colonic stool burden. Finalized by Carlton Avery MD on 03/25/2025 6:56 PM Procedure Note Carlton Avery MD - 03/25/2025 XR SPINE LUMBAR 2 OR 3 VWS: 03/25/2025 PROVIDED HISTORY: * 49 years old Female * fall pain COMPARISON: 10/18/2016 FINDINGS/IMPRESSION: 1. No acute fracture or dislocation. 2. Nonspecific bowel gas pattern without signs of obstruction. 3. Moderate colonic stool burden. Finalized by Carlton Avery MD on 03/25/2025 6:56 PM Authorizing ProviderResult TypeResult StatusRachel D Vernonla [facility] MANPOWER DEVELOPMENT SPECIALIST MANAGER-[facility]ITALG DIAGNOSTIC IMAGING ORDERABLESFinal Result * CT brain without contrast (03/25/2025 6:44 PM EST)Anatomical RegionLaterality ModalityNeuro, Head, Head and Neck, Neuro CoveraN/AComputed TomographySpecimen (Source)Anatomical Location / LateralityCollection Method / VolumeCollection TimeReceived Time03/25/2025 6:56 PM EST Narrative 03/25/2025 6:57 PM EST EXAM: CT BRAIN WO CONT CLINICAL INFORMATION: syncope head injury. TECHNIQUE: CT head was performed without contrast utilizing 2.5 mm axial reconstruction with imagesreviewed in bone and brain windows. Automated exposure control was utilized. COMPARISON: 06/18/2019 FINDINGS: There is no evidence for an acute intra or extra-axial hemorrhage. No significant white matter abnormalities are seen. The ch-white matter differentiation is preserved. There is no intracranial mass effect. The ventricles are proportional to the overall brain volume without evidence for outflow obstruction. There is no shift of the midline structures and the basal cisterns are widely patent. There are no depressed or widely calvarial fractures. The paranasal sinuses are well aerated. The mastoids are clear. IMPRESSION: 1. No acute intracranial abnormalities. All CT scans at this facility use dose modulation, iterative reconstruction, and/or weight based dosing when appropriate to reduce radiation dose to as low as reasonably achievable. Finalized by Matty Copeland MD on 03/25/2025 6:57 PM Procedure Note Matty Copeland MD - 03/25/2025 EXAM: CT BRAIN WO CONT CLINICAL INFORMATION: syncope head injury. TECHNIQUE: CT head was performed without contrast utilizing 2.5 mm axial reconstruction with images reviewed in bone and brain windows. Automatedexposure control was utilized. COMPARISON: 06/18/2019 FINDINGS: There is no evidence for an acute intra or extra-axial hemorrhage. Nosignificant white matter abnormalities are seen. The ch-white matterdifferentiation is preserved. There is no intracranial mass effect. Theventricles are proportional to the overall brain volume without evidencefor outflow obstruction. There is no shift of the midline structures and the basalcisterns are widely patent. There are no depressed or widely separatedcalvarial fractures. The paranasal sinuses are well aerated. The mastoidsare clear. IMPRESSION: 1. No acute intracranial abnormalities. All CT scans at this facility use dose modulation, iterativereconstruction, and/or weight based dosing when appropriate to reduceradiation dose to as low as reasonably achievable. Finalized by Matty Copeland MD on 03/25/2025 6:57 PM Authorizing ProviderResult TypeResult StatusRachel Edu Florez APRN-CNPIMG CT ORDERABLESFinal Result * Troponin I, High Sensitivity 1 Hour (03/25/2025 6:35 PM EST)ComponentValueRef RangeTest MethodAnalysis TimePerformed AtPathologist SignatureTROPONIN I, HIGH SENSITIVITY<2<16 ng/L105/25/2024 7:10 PM ESTPROMEDICA [facility]ECUL[facility] Specimen (Source)Anatomical Location / LateralityCollection Method / Volume Collection TimeReceived TimeBloodVenous blood / UnknownVenipuncture / Unknown 03/25/2025 6:35 PM EST03/25/2025 6:49 PM EST Narrative Authorizing ProviderResult TypeResult StatusRachel D Gautam MANPOWER DEVELOPMENT SPECIALIST MANAGER-CNPLAB BLOOD ORDERABLESFinal ResultPerforming OrganizationAddressCity/State/ZIP CodePhone Number [facility] [address] [address], * Troponin I, High Sensitivity 0 Hour (03/25/2025 5:38 PM EST)ComponentValueRef RangeTest MethodAnalysis TimePerformed AtPathologist SignatureTROPONIN I, HIGH SENSITIVITY<2<16 ng/L105/25/2024 6:37 PM [facility] Specimen (Source)Anatomical Location / LateralityCollection Method / Volume Collection TimeReceived TimeBloodVenous blood / UnknownVenipuncture / Unknown 03/25/2025 5:38 PM EST03/25/2025 5:41 PM EST Narrative Authorizing ProviderResult TypeResult StatusRachel D Karchcristal MANPOWER DEVELOPMENT SPECIALIST MANAGER-CNPLAB BLOOD ORDERABLESFinal ResultPerforming OrganizationAddressCity/State/ZIP CodePhone Number [address] [address], * Light Blue Top (03/25/2025 5:38 PM EST)ComponentValueRef RangeTest Method Analysis TimePerformed AtPathologist SignatureExtra TubeAuto Resulted 03/25/2025 7:01 PM [facility]ITALpecimen (Source) Anatomical Location / LateralityCollection Method / VolumeCollection Time Received TimeBloodVenous blood / Sifraqv2703/25/2025 5:38 PM EST03/25/2025 5:42 PM EST Narrative Authorizing ProviderResult TypeResult StatusRachel D Gautam MANPOWER DEVELOPMENT SPECIALIST MANAGER-CNPLAB BLOOD ORDERABLESFinal ResultPerforming OrganizationAddressCity/State/ZIP CodePhone Number [address] [address], * CBC auto differential (03/25/2025 5:38 PM EST)ComponentValueRef RangeTest MethodAnalysis TimePerformed AtPathologist SignatureWBC5.14 - 11 X10^9/L 03/25/2025 5:53 PM [facility]OSPITALRBC Count5.123.8 - 5.2 X10^12/L105/25/2024 5:53 PM [facility] Hroxfrlwfa06.011.7 - 15.5 g/dL03/25/2025 5:53 PM [facility]OSPITALHematocrit41.435 - 47 %03/25/2025 5:53 PM [facility]ITALMCV8180 - 100 fL03/25/2025 5:53 PM [facility]ITALMCH27.327 - 34 pg03/25/2025 5:53 PM ESTPROMEDISAINT LOUISE REGIONAL HOSPITALMCHC33.732 - 36 g/dL03/25/2025 5:53 PM ESTPROMEDISAINT LOUISE REGIONAL HOSPITALRDW13.411.5 - 15 %03/25/2025 5:53 PM ESTPROMEDISAINT LOUISE REGIONAL HOSPITALPlatelet Finqq040657 - 450 X10^9/L105/25/2024 5:53 PM EST PROMEDICUSC VERDUGO HILLS HOSPITALMPV8.97 - 12 fL03/25/2025 5:53 PM EST PROMSELMA COMMUN[facility] HOSPITALNeutrophils %69.9%03/25/2025 5:53 PM EST [facility]OMSEL[facility]UN[facility] HOSPITALLymphocytes %22.5%03/25/2025 5:53 PM EST [facility]OSPITALMonocytes %5.4%03/25/2025 5:53 PM EST [facility]ICMER[facility]IN[facility]AMP[facility] HOSPITALEosinophils %1.7%03/25/2025 5:53 PM EST PROM[facility]OSPITALBasophils %0.5%03/25/2025 5:53 PM EST [facility]OMSEL[facility] HOSPITALNeutrophils Absolute (A)3.61.5 - 6.6 X10^9/L105/25/2024 5:53 PM ESTPROMEDISAINT LOUISE REGIONAL HOSPITALLymphocytes Absolute1.11.0 - 3.5 X10^9/L105/25/2024 5:53 PM ESTPROMEDISAINT LOUISE REGIONAL HOSPITALMonocytes Absolute0.30.0 - 0.9 X10^9/L105/25/2024 5:53 PM ESTPROMEDICA TEMECULA VALLEY HOSPITALEosinophils Absolute0.10.0 - 0.4 X10^9/L105/25/2024 5:53 PM ESTPROMEDISAINT LOUISE REGIONAL HOSPITALBasophils Absolute0.00.0 - 0.2 X10^9/L105/25/2024 5:53 PM ESTPROMEDISAINT LOUISE REGIONAL HOSPITALDifferential TypeAUTOMATED MBKBXAUMMPQN99/05/2025 5:53 PM ESTPROKaiser Foundation Hospital (Source)Anatomical Location / LateralityCollection Method / VolumeCollection TimeReceived TimeBloodVenous blood / UnknownVenipuncture / Zgctmwd9803/25/2025 5:38 PM EST03/25/2025 5:41 PM EST Narrative Authorizing ProviderResult TypeResult StatusRachel D Vernonprernacristal MANPOWER DEVELOPMENT SPECIALIST MANAGER-CNPLAB BLOOD ORDERABLESFinal ResultPerforming OrganizationAddressty/State/ZIP CodePhone Number [address] [address], * Magnesium (03/25/2025 5:38 PM EST)ComponentValueRef RangeTest MethodAnalysis TimePerformed AtPathologist SignatureMAGNESIUM2.01.8 - 2.6 mg/dL03/25/2025 6:30 PM ESTWayne Hospital (Source)Anatomical Location / LateralityCollection Method / VolumeCollection TimeReceived Time BloodVenous blood / UnknownVenipuncture / Obdxxli6103/25/2025 5:38 PM EST 03/25/2025 5:41 PM EST Narrative Authorizing ProviderResult TypeResult StatusRachel D Gautam MANPOWER DEVELOPMENT SPECIALIST MANAGER-CNPLAB BLOOD ORDERABLESFinal ResultPerforming OrganizationAddressMemorial Health System/State/ZIP CodePhone Number [address] [address], * (ABNORMAL) Comprehensive metabolic panel (03/25/2025 5:38 PM EST)Component ValueRef RangeTest MethodAnalysis TimePerformed AtPathologist SignatureSODIUM 757752 - 146 mmol/L105/25/2024 6:30 PM ESTPROCONTRA COSTA REGIONAL [facility]ICAL [facility] POTASSIUM3.73.5 - 5.0 mmol/L105/25/2024 6:30 PM ESTWESTERN RESERVE HOSPITALCHLORIDE9998 - 109 mmol/L105/25/2024 6:30 PM ESTPROCONTRA COSTA REGIONAL MEDICAL CENTERCARBON JPETQAD2786 - 32 mmol/L105/25/2024 6:30 PM ESTPROCONTRA COSTA REGIONAL MEDICAL CENTERANION UYD969 - 15 mmol/L105/25/2024 6:30 PM EST [facility]ITALBLOOD UREA XVQQLZXV571 - 23 mg/dL03/25/2025 6:30 PM [facility]OSPITALCREATININE1.04(H)0.40 - 1.00 mg/dL03/25/2025 6:30 PM [facility]OSPITALComment:METHOD TRACEABLE TO IDMS UTPBJXGGGBPFZEX919(H)65 - 99 mg/dL03/25/2025 6:30 PM EST [facility]ITALCALCIUM9.18.5 - 10.5 mg/dL03/25/2025 6:30 PM [facility] HOSPITALTOTAL PROTEIN7.06.0 - 8.0 g/dL 03/25/2025 6:30 PM [facility] HOSPITALALBUMIN4.03.2 - 5.3 g/dL03/25/2025 6:30 PM [facility] HOSPITALALKALINE RLRDPMRFOFS4410 - 130 U/L105/25/2024 6:30 PM [facility]ITALAST21<=41 U/L105/25/2024 6:30 PM [facility] ALT25<=31 U/L105/25/2024 6:30 PM [facility] BILIRUBIN,TOTAL0.40.3 - 1.2 mg/dL03/25/2025 6:30 PM [facility]OP[facility] HOSPITALEGFR Non-Race Dbcnfmxff79>=60 ml/min/1.73sq.m105/25/2024 6:30 PM [facility]OSPITALComment: eGFR not reported due to non-numeric value for Creatinine. Reported eGFR is based on the CKD-EPI 2020 equation that does not use a race coefficient. Specimen (Source)Anatomical Location / LateralityCollection Method / Volume Collection TimeReceived TimeBloodVenous blood / UnknownVenipuncture / Unknown 03/25/2025 5:38 PM EST03/25/2025 5:41 PM EST Narrative Authorizing ProviderResult TypeResult StatusRachel Edu Florez MANPOWER DEVELOPMENT SPECIALIST MANAGER-CNPLAB BLOOD ORDERABLESFinal ResultPerforming OrganizationAddressCity/State/ZIP CodePhone Number [facility] [address] [place] [address], * ECG 12 lead (03/25/2025 5:36 PM EST)Specimen (Source)Anatomical Location / LateralityCollection Method / VolumeCollection TimeReceived Time03/25/2025 5:36 PM EST Narrative [facility] - 03/30/2025 9:22 PM EST Authorizing ProviderResult TypeResult StatusRachel Edu Florez MANPOWER DEVELOPMENT SPECIALIST MANAGER-CNPECG ORDERABLESFinal ResultPerforming OrganizationAddressCity/State/ZIP CodePhone Number [facility] from Last 3 Months Insurance * Guarantor: Nabor Stovall TypeRelation to PatientDate of PhoneBilling AddressThird Libertarian GkkktnrejHula89/03/1976 [address] [place] [address] MemberSubscriberPlan / Payer (Effective 2016-Present)Name:Nabor Stovall Relation to Subscriber:EmployeeName:NABOR STOVALL Date of :1975 Address: [address] [place] [address] Payer ID:Not on file Group ID:Not on file Type:Not on file Address: [address] [place] [id number] * Guarantor: Nabor Stovall TypeRelation to PatientDate of PhoneBilling AddressWorkers SknwXsmkjsep88/03/1976 [address] [place] [address] Advance Directives * Full Code (Latest Code Status on File) Date ActivatedDate InactivatedComments08/02/2022 10:03 PM08/10/2022 12:17 PM * Full Code Date ActivatedDate InactivatedComments07/30/2022 6:22 PM08/02/2022 9:10 PM Care Teams Team MemberRelationshipSpecialtyStart DateEnd Date Services, [facility] [address] [place], [place] PCP - GeneralFakyly Medicine01/17/25
--- OUTSIDE RECORDS SUMMARY | 2025-05-09 16:20 | XMS_ITS | Encounter Summary ---
Author Organization [facility] Address [address] [address] Care Team Providers Care Utility Worker Film Processing Name Role Phone William Weston Primary Care Provider [phone] Encounter Details DateTypeDepartmentCare Team (Latest Contact Info)Zpjranpyjss82/17/2025Telephone [facility] [address] [place] [phone] Libby Suh Social History Tobacco UseTypesPacks/DayYears UsedDateSmoking Tobacco: NeverSmokeless Tobacco: NeverAlcohol UseStandard Drinks/WeekCommentsNot Currently0 (1 standard drink = 0.6 oz pure alcohol)UT Safety & EnvironmentAnswerDate RecordedFear of Current or Ex-PartnerNot on file10/09/2023Emotionally AbusedNot on file10/09/2023hysically AbusedNot on file10/09/2023Sexually AbusedNot on file10/09/2023hysically or Sexually AbusedNot on file10/09/2023CommentsNoSex and Gender Information ValueDate RecordedSex Assigned at PfvgvFnahcp30/27/2025 9:30 AM EDTLegal Sex Pzsarx2911/16/2021 11:16 PM EDTGender OukgjuijZcofcc71/27/2025 9:30 AM EDTSexual OrientationChoose not to ylqaeoep71/27/2025 9:30 AM EDTdocumented as of this encounter Miscellaneous Notes * Telephone Encounter - Libby Suh - 05/06/2025 4:20 PM EST Images from the original note were not included. Prior Authorization Approved Dates of Approval 05/06/2025 - 05/05/2026 * Telephone Encounter - Libby Suh - 05/06/2025 4:13 PM EST Prior authorization request for Ivabradine 5mg Prior authorization processed and submitted to patient's insurance, awaiting determination from insurance in response to medication coverage. Cover My Meds [place]# [id number] documented in this encounter Plan of Treatment Not on file documented as of this encounter Visit Diagnoses Not on filedocumented in this encounter Care Teams Team MemberRelationshipSpecialtyStart DateEnd Date William Weston PA PCP - 10/16/23documented as of this encounter
[2025-05-09 16:21] LABS: Anion Gap 10.9; Blood Urea Nitrogen 12.0 mg/dL (7.0-18.0); Calcium 9.3 mg/dL (8.5-10.1); Carbon Dioxide 32.4 mmol/L (21.0-32.0); Chloride 108 mmol/L (98-107); Estimated GFR (African America >60 (>=60 mL/min/1.73m^2); Estimated GFR (Non-African Ame >60 (>=60 mL/min/1.73m^2); Glucose 94 mg/dL (74-106); Potassium 4.3 mmol/L (3.5-5.1); Sodium 147 mmol/L (136-145)
[2025-05-09 16:25] LABS: INR 1.05; Partial Thromboplastin Time 28.8 sec (22.3-36.2); Prothrombin Time 11.0 sec (9.0-11.6)
[2025-05-09] MEDS: PANTOPRAZOLE SODIUM 80 MG in 0.9 % SODIUM CHLORIDE 100 ML 10 MG IV (18:54)
[2025-05-09] MEDS: 0.9 % SODIUM CHLORIDE 1,000 ML 1000 ML IV (19:20)
--- NOTE | 2025-05-09 19:23 | PC.NURSE ---
Patient report given to BENSON Avendaño
== END 2025-05-09 21:15 | disposition short-term general hospital (02) ==
PROVIDERS: Emergency Provider Emergency Medicine
DX: K92.2 Gastrointestinal hemorrhage, unspecified (principal)
CPT/HCPCS: 36415; 71045; 80048; 85025; 85610; 85730; 93005; 96365; 96366; 96376; 99285